=== PATIENT | female | born 2005 | race Caucasian/White ===

== ENCOUNTER 2024-06-05 15:14 | Emergency (ER) | payer SELFPAY ==
--- NOTE | ~2024-06-05 | XR_ITS ---
EXAMINATION: XR chest 2V Exam Date/Time: 06/05/2024 17:41 CDT HISTORY: shortness of breath FOR 1 DAY, HX OF ASTHMA Comparison: None. RESULT: Lines, tubes, and devices: None. Lungs and pleura: Clear. Cardiomediastinal silhouette: Normal. Other: No acute osseous or upper abdominal finding. IMPRESSION: No acute cardiopulmonary process. Reviewed, dictated and finalized at location K.
[2024-06-05 15:31] VITALS: BP 147/69; PULSE 96; RESP 16; TEMP 37.4; O2SAT 100
--- NOTE | 2024-06-05 17:21 | ED.GENADULT ---
HPI - General Adult General Chief complaint: Unspecified <Agnes Reyes APRN - Last Filed: 06/05/24 17:23> Stated complaint: Sent from [facility] allergic reaction <Agnes Reyes APRN - Last Filed: 06/05/24 17:23> Time Seen by Provider: 06/05/24 17:10 <Agnes Reyes APRN - Last Filed: 06/05/24 17:23> Focused HPI: Patient is a 19-year-old female who presents to the ER with complaints of sore and swollen throat. She reports she took a Zepbound injection on Wednesday and started to feel a little funky the next day. Patient reports her symptoms worsened yesterday. She called her physician who advised her to come to the ER in case she was having allergic reaction to Zepbound. Patient endorses a history of high blood pressure although she has never been diagnosed with it. She denies any recent contacts, recent fevers, or abdominal pain. Patient does endorse increased fatigue recently. GENERAL: Well-appearing, well-nourished, and in no acute distress. HEAD: Normocephalic, atraumatic. CHEST: Clear to auscultation. ?No respiratory distress. HEART: Regular rate and rhythm.? NEURO: ?Alert and oriented x3. Patient screened in triage and initial orders placed.? ?Additional care and disposition to be based upon?diagnostic testing and treatment. <Agnes Reyes APRN - Last Filed: 06/05/24 17:23> Related Data Allergies/adverse reactions: Allergies Allergy/AdvReac Type Severity Reaction Status Date / Time No Known Allergies Allergy Verified 06/05/24 15:15 <Agnes Reyes APRN - Last Filed: 06/05/24 17:23> Course Vital Signs Vital signs: Vital Signs Temperature 99.4 F 06/05/24 15:31 Pulse Rate 96 06/05/24 15:31 Respiratory Rate 16 06/05/24 15:31 Blood Pressure 147/69 H 06/05/24 15:31 Pulse Oximetry 100 06/05/24 15:31 Oxygen Delivery Room Air 06/05/24 15:31 Temperature 99.4 F 06/05/24 15:31 Pulse Rate 87 06/05/24 19:51 Respiratory Rate 15 06/05/24 19:51 Blood Pressure 138/86 06/05/24 19:51 Pulse Oximetry 98 06/05/24 19:51 Oxygen Delivery Room Air 06/05/24 18:40 <Agnes Reyes APRN - Last Filed: 06/05/24 17:23> Vital Signs Temperature 99.4 F 06/05/24 15:31 Pulse Rate 96 06/05/24 15:31 Respiratory Rate 16 06/05/24 15:31 Blood Pressure 147/69 H 06/05/24 15:31 Pulse Oximetry 100 06/05/24 15:31 Oxygen Delivery Room Air 06/05/24 15:31 Temperature 99.4 F 06/05/24 15:31 Pulse Rate 87 06/05/24 19:51 Respiratory Rate 15 06/05/24 19:51 Blood Pressure 138/86 06/05/24 19:51 Pulse Oximetry 98 06/05/24 19:51 Oxygen Delivery Room Air 06/05/24 18:40 <Steve Funk PA-C - Last Filed: 06/06/24 01:42> Medical Decision Making MDM Narrative Medical decision making narrative: This is a 19-year-old female who presents to the ED for chief complaint of congestion, sore throat. Vitals are normal. Exam unremarkable. Patient is concerned for possible allergic reaction. Seems to be either allergic reaction or viral URI. Viral screen is negative. Bremer test negative and strep test negative. Chest x-ray is also negative. Patient was given Toradol IM as well as prednisone p.o. as ordered by BENY in triage. She is well-appearing on my evaluation. Presentation consistent with allergies versus viral URI. Low concern for severe allergic reaction. Patient will be discharged in stable condition. Supportive measures discussed and return precautions given. Patient is understanding and agreeable with plan for discharge with PCP follow-up. <Steve Funk PA-C - Last Filed: 06/06/24 01:42> Vital Signs Vital Signs: Vital Signs Temperature 99.4 F 06/05/24 15:31 Pulse Rate 96 06/05/24 15:31 Respiratory Rate 16 06/05/24 15:31 Blood Pressure 147/69 H 06/05/24 15:31 Pulse Oximetry 100 06/05/24 15:31 Oxygen Delivery Room Air 06/05/24 15:31 Temperature 99.4 F 06/05/24 15:31 Pulse Rate 87 06/05/24 19:51 Respiratory Rate 15 06/05/24 19:51 Blood Pressure 138/86 06/05/24 19:51 Pulse Oximetry 98 06/05/24 19:51 Oxygen Delivery Room Air 06/05/24 18:40 <Agnes Reyes APRN - Last Filed: 06/05/24 17:23> Vital Signs Temperature 99.4 F 06/05/24 15:31 Pulse Rate 96 06/05/24 15:31 Respiratory Rate 16 06/05/24 15:31 Blood Pressure 147/69 H 06/05/24 15:31 Pulse Oximetry 100 06/05/24 15:31 Oxygen Delivery Room Air 06/05/24 15:31 Temperature 99.4 F 06/05/24 15:31 Pulse Rate 87 06/05/24 19:51 Respiratory Rate 15 06/05/24 19:51 Blood Pressure 138/86 06/05/24 19:51 Pulse Oximetry 98 06/05/24 19:51 Oxygen Delivery Room Air 06/05/24 18:40 <Steve Funk PA-C - Last Filed: 06/06/24 01:42> Lab Data Result diagrams: 06/05/24 18:35 06/05/24 18:35 <Agnes Reyes APRN - Last Filed: 06/05/24 17:23> Labs: Lab Results 06/05/24 06/05/24 Range/Units 18:35 18:58 WBC 5.8 (4.5-10.0) K/mm3 RBC 5.17 (4.2-5.4) M/mm3 Hgb 14.7 (12.0-15.0) g/dL Hct 44.4 (37.0-47.0) % MCV 85.9 (80-100) fl MCH 28.4 (26-34) pg MCHC 33.1 (32-36) g/dl RDW 12.5 (11.5-14.5) % Plt Count 229 (150-375) k/mm3 MPV 9.2 (7.4-10.4) fl Immature Gran % (Auto) 0.3 (0-0.5) % Neut % (Auto) 90.0 H (45.5-73.1) % Lymph % (Auto) 8.1 L (18.3-44.2) % Bremer % (Auto) 1.4 L (2.6-8.5) % Eos % (Auto) 0.0 (0-4.4) % Baso % (Auto) 0.2 (0.2-1.2) % Lymph # (Auto) 0.47 L (0.9-3.2) K/mm3 Bremer # (Auto) 0.1 (0.1-0.6) K/mm3 Eos # (Auto) 0.0 (0-0.3) K/mm3 Baso # (Auto) 0.0 (0.0-0.1) K/mm3 Abs Immat Gran (auto) 0.02 (0.00-0.031) K/mm3 Absolute Neuts (auto) 5.2 (1.3-6.7) K/mm3 Absolute Nucleated RBC 0.000 (0.0-0.012) K/mm3 Nucleated RBC % 0.0 (0.0-0.2) % Sodium 138 (137-145) mmol/L Potassium 3.9 (3.4-5.0) mmol/L Chloride 105 (98-107) mmol/L Carbon Dioxide 23 (22-30) mmol/L Anion Gap 10 (4-12) mmol/L BUN 8 (7-17) mg/dL Creatinine 0.60 L (0.7-1.0) mg/dL Estim Creat Clear Calc 136 ml/min Estimated GFR > 60 (59 - ) Glucose 135 H (65-110) mg/dL Calcium 9.2 (8.4-10.2) mg/dL Total Bilirubin 0.9 (0.2-1.3) mg/dL AST 37 H (14-36) U/L ALT 51 H (6-35) U/L Alkaline Phosphatase 95 (38-126) U/L Total Protein 8.0 (6.3-8.2) g/dL Albumin 4.8 (3.5-5.1) g/dL Monoscreen Negative (Negative) Influenza A (RT-PCR) Negative (Negative) Influenza B (RT-PCR) Negative (Negative) RSV (RT-PCR) Negative (Negative) SARS-CoV-2 RNA (RT-PCR) Negative (Negative) Group A Strep (PCR) Not detected (Negative) <Agnes Gilbert Reyes, MATERIAL DAMAGE ADJUSTER - Last Filed: 06/05/24 17:23> Lab Results 06/05/24 06/05/24 Range/Units 18:35 18:58 WBC 5.8 (4.5-10.0) K/mm3 RBC 5.17 (4.2-5.4) M/mm3 Hgb 14.7 (12.0-15.0) g/dL Hct 44.4 (37.0-47.0) % MCV 85.9 (80-100) fl MCH 28.4 (26-34) pg MCHC 33.1 (32-36) g/dl RDW 12.5 (11.5-14.5) % Plt Count 229 (150-375) k/mm3 MPV 9.2 (7.4-10.4) fl Immature Gran % (Auto) 0.3 (0-0.5) % Neut % (Auto) 90.0 H (45.5-73.1) % Lymph % (Auto) 8.1 L (18.3-44.2) % Bremer % (Auto) 1.4 L (2.6-8.5) % Eos % (Auto) 0.0 (0-4.4) % Baso % (Auto) 0.2 (0.2-1.2) % Lymph # (Auto) 0.47 L (0.9-3.2) K/mm3 Bremer # (Auto) 0.1 (0.1-0.6) K/mm3 Eos # (Auto) 0.0 (0-0.3) K/mm3 Baso # (Auto) 0.0 (0.0-0.1) K/mm3 Abs Immat Gran (auto) 0.02 (0.00-0.031) K/mm3 Absolute Neuts (auto) 5.2 (1.3-6.7) K/mm3 Absolute Nucleated RBC 0.000 (0.0-0.012) K/mm3 Nucleated RBC % 0.0 (0.0-0.2) % Sodium 138 (137-145) mmol/L Potassium 3.9 (3.4-5.0) mmol/L Chloride 105 (98-107) mmol/L Carbon Dioxide 23 (22-30) mmol/L Anion Gap 10 (4-12) mmol/L BUN 8 (7-17) mg/dL Creatinine 0.60 L (0.7-1.0) mg/dL Estim Creat Clear Calc 136 ml/min Estimated GFR > 60 (59 - ) Glucose 135 H (65-110) mg/dL Calcium 9.2 (8.4-10.2) mg/dL Total Bilirubin 0.9 (0.2-1.3) mg/dL AST 37 H (14-36) U/L ALT 51 H (6-35) U/L Alkaline Phosphatase 95 (38-126) U/L Total Protein 8.0 (6.3-8.2) g/dL Albumin 4.8 (3.5-5.1) g/dL Monoscreen Negative (Negative) Influenza A (RT-PCR) Negative (Negative) Influenza B (RT-PCR) Negative (Negative) RSV (RT-PCR) Negative (Negative) SARS-CoV-2 RNA (RT-PCR) Negative (Negative) Group A Strep (PCR) Not detected (Negative) <Steve Funk PA-C - Last Filed: 06/06/24 01:42> Discharge Plan Discharge Clinical Impression: Nasal congestion, Sore throat <Agnes Reyes APRN - Last Filed: 06/05/24 17:23> Patient Disposition: Home <Agnes Reyes APRN - Last Filed: 06/05/24 17:23> Condition: Stable <Agnes Reyes APRN - Last Filed: 06/05/24 17:23> Instructions: Antibiotic Form <Agnes Reyes APRN - Last Filed: 06/05/24 17:23> Additional Instructions: Exam and workup today are reassuring. Please continue to follow-up with your primary physician on this issue. Take Benadryl as needed for allergic symptoms. If you continue to have nasal congestion, use Flonase. If you have any new or worsening symptoms please return to the ER for further evaluation. <Agnes Reyes APRN - Last Filed: 06/05/24 17:23> Patient Language: Somali <Agnes Reyes APRN - Last Filed: 06/05/24 17:23> Prescriptions: New fluticasone propionate [Flonase Allergy Relief] 50 mcg/actuation spray,suspension 1 spray intranasal BID PRN (Reason: congestion) Qty: 16 0RF Rx Instructions: administer into each nostril <Agnes Reyes APRN - Last Filed: 06/05/24 17:23> Follow-up/Referrals: PHYSICIAN NOT ON STAFF,NONSTAFF [Primary Care Provider] - <Agnes Reyes APRN - Last Filed: 06/05/24 17:23> Time of Disposition: 19:59 <Agnes Reyes APRN - Last Filed: 06/05/24 17:23> 19:59 <Steve Funk PA-C - Last Filed: 06/06/24 01:42>
[2024-06-05 18:40] VITALS: O2SAT 99
[2024-06-05] MEDS: predniSONE 20 MG TABLET 40 MG PO (18:40)
[2024-06-05 18:41] LABS: Basophils Percent Auto 0.2 % (0.2-1.2); Hematocrit 44.4 % (37.0-47.0); Hemoglobin 14.7 g/dL (12.0-15.0); Immature Granulocyte Absolute 0.02 K/mm3 (0.00-0.031); Immature Granulocyte Percent A 0.3 % (0-0.5); Lymphocytes Absolute Auto 0.47 K/mm3 (0.9-3.2); Lymphocytes Percent Auto 8.1 % (18.3-44.2); Mean Corpuscular HGB Conc 33.1 g/dl (32-36); Mean Corpuscular Hemoglobin 28.4 pg (26-34); Mean Corpuscular Volume 85.9 fl (80-100); Mean Platelet Volume 9.2 fl (7.4-10.4); Monocytes Absolute Auto 0.1 K/mm3 (0.1-0.6); Monocytes Percent Auto 1.4 % (2.6-8.5); Neutrophils Absolute Auto 5.2 K/mm3 (1.3-6.7); Platelet Count Result 229 k/mm3 (150-375); Red Blood Count 5.17 M/mm3 (4.2-5.4); Red Cell Distribution Width 12.5 % (11.5-14.5); White Blood Count 5.8 K/mm3 (4.5-10.0)
[2024-06-05] MEDS: KETOROLAC (*BKC) 60 MG/2 ML VIAL IM (18:41)
[2024-06-05 18:52] LABS: Alanine Aminotransferase 51 U/L (6-35); Albumin Level 4.8 g/dL (3.5-5.1); Alkaline Phosphatase 95 U/L (38-126); Anion Gap 10 mmol/L (4-12); Aspartate Amino Transferase 37 U/L (14-36); Bilirubin,Total 0.9 mg/dL (0.2-1.3); Blood Urea Nitrogen 8 mg/dL (7-17); Calcium 9.2 mg/dL (8.4-10.2); Carbon Dioxide 23 mmol/L (22-30); Chloride 105 mmol/L (98-107); Estimated CRCL calculation 136 ml/min; Estimated Glomerular Filt Rate > 60; Glucose 135 mg/dL (65-110); Potassium 3.9 mmol/L (3.4-5.0); Sodium 138 mmol/L (137-145)
[2024-06-05 19:08] LABS: Strep Group A RT-PCR NOT DETECTED (Negative)
--- OUTSIDE RECORDS SUMMARY | 2024-06-05 19:26 | XMS_ITS | Patient Health Record ---
Author Organization [facility] ([address]) Address [address] [place] [address] Care Team Providers Care Ball Worker Name Role Phone Suzette avilez Unavailable [phone] Allergies No Known Allergies Reason For Referral No Information Medications Medication SIG (Take, Route, Frequency, Duration) Notes Start Date End Date Status Albuterol Sulfate HFA 108 (90 Base) MCG/ACT 1 puff as needed Inhalation every 4 hrs Active Famotidine 20 MG 1 tablet Orally Twic e a day for 30 days Active Cetirizine HCl 10 MG 1 tablet Orally Twi ce a day for 30 days Active FLUoxetine HCl 20 MG 1 capsule Orally On ce a day Active ARIPiprazole 5 MG 1 tablet Orally Once a day Active Xyzal Allergy 24HR 5 MG 1 tablet in the evening Orally Once a day Active hydrOXYzine HCl 25 MG as directed Intramuscular Active Social History Tobacco Use: Social History Observation Description Date Details (start date - stop date) Never Smoker NA - NA Tobacco Control (Standard) Question Answer Notes Tobacco use: Nonsmoker Problems Problem Type SNOMED Code ICD Code Onset Dates Problem Status W/U Status Risk Notes Problem Shortness of breath (629566195) Shortness of breath (R06.02) Active confirmed Problem Chronic rhinitis (71539892) Chronic rhinitis (J31.0) Active confirmed Problem Hypertrophy of nasal turbinates (75711616) Hypertrophy of nasal turbinates (J34.3) Active confirmed Problem Dermatographic urticaria (8403732) 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 Problem Urticaria (199791854) Other urticaria (L50.8) Active confirmed Vital Signs Respiratory Rate 16 /min 09/09/2023 Oximetry 99 % 10/07/2023 Blood pressure diastolic 78 mm Hg 10/07/2023 Height 65 in 10/07/2023 Blood pressure systolic 118 mm Hg 10/07/2023 Weight 157.6 lbs 10/07/2023 BMI 26.22 kg/m2 10/07/2023 Encounters Encounter Location Date [facility] [address] [facility] [address] [address] [facility] L50.3 ; Other urticaria L50.8 ; Shortness of breath R06.02 ; Hypertrophy of nasal turbinates J34.3 and Chronic rhinitis J31.0 [place] [address] [employer] [address] [address] [facility] L50.3 ; Other urticaria L50.8 ; Shortness of breath R06.02 ; Hypertrophy of nasal turbinates J34.3 and Chronic rhinitis J31.0 Assessments Encounter Date Diagnosis (ICD Code) Assessment Notes Treatment Notes Treatment Clinical Notes Section Notes 09/09/2023 Dermatographic urticaria (ICD-10 - L50.3) Dermatographia confirmed with sharp and dull pressure today. Pic attached. 09/09/2023 Other urticaria (ICD-10 - L50.8) Considerations for hives include autoimmune, viral, stress, or idiopathic. History, presentation, pictures and timeframe of symptoms >6 weeks c/w chronic idiopathic urticaria. -Trial Zyrtec 10mg BID and Famotidine 20 mg BID. Discussed SIngualir with patient - will hold off at this time due to patient's mental health history. Patient purchased Zyrtec and Pepcid. -If breakthrough continues despite this treatment, consider Xolair. -Labwork ordered for further evaluation. -Encouraged to journal and take pictures. -Education on chornic urticaria provided. Encouraged to avoid products with fragrances, dyes and preservatives. Recommended Vanicream Line - samples given. -Recommend avoiding NSAIDs, opioids and alcohol as these can exacerbate symptoms. -Follow-up in 1 month for E&M 10/07/2023 Dermatographic urticaria (ICD-10 - L50.3) Dermatographia confirmed with sharp and dull pressure at initial visit. Pic attached. 10/07/2023 Other urticaria (ICD-10 - L50.8) Considerations for hives include autoimmune, viral, stress, or idiopathic. History, presentation, pictures and timeframe of symptoms >6 weeks c/w chronic idiopathic urticaria. Zyrtec 10mg and Pepcid 40mg BID was started after last visit with great improvement. Megan reports 1-2 breakthrough symptoms which she attributes to stress at work. Overall, very pleased with control. -Continue Zyrtec 10mg BID and Famotidine 20 mg BID. Discussed increasing Pepcid to 40mg BID, but patient is not interested at this time. Previosuly discussed SIngualir with patient - will hold off at this time due to patient's mental health history. -If breakthrough continues despite this treatment, consider Xolair. -Labwork ordered for further evaluation - has yet to obtain. -Encouraged to journal and take pictures. -Education on chornic urticaria provided. Encouraged to avoid products with fragrances, dyes and preservatives. Recommended Vanicream Line. -Recommend avoiding NSAIDs, opioids and alcohol as these can exacerbate symptoms. -Follow-up in 3 months for E&M 10/07/2023 Shortness of breath (ICD-10 - R06.02) Megan reports a childhood diagnosis of asthma. Currently uses albuterol as needed, prophylactically before cardio exercises. She has not used as a rescue inhaler in years. Previously, she would use as SHERIE as rescue inhaler when arond smoke. She reports a history of PNA around age of 5, not confirmed with Chest Xray. She was treated with nebulizers at that time. Denies all lower airway symptoms today. - Only using SHERIE prophylactically at this time. Continue SHERIE e2 puffs every 4-6 hours as needed. - Spirometry previously recommended, but patient declined. - Instructed to notify office of increase SHERIE use. 09/09/2023 Shortness of breath (ICD-10 - R06.02) Megan reports a childhood diagnosis of asthma. Currently uses albuterol as needed, prophylactically before cardio exercises. She has not used as a rescue inhaler in years. Previously, she would use as SHERIE as rescue inhaler when arond smoke. She reports a history of PNA around age of 5, not confirmed with Chest Xray. She was treated with nebulizers at that time. Deneis all lower airway symptoms today. - Only using SHERIE prophylactically at this time. Continue SHERIE e2 puffs every 4-6 hours as needed. - Spirometry recommended today, but patient declined. - Instructed to notify office of increase SHERIE use. 09/09/2023 Hypertrophy of nasal turbinates (ICD-10 - J34.3) Megan reports nasal congestion, rhinorrhea, itchy/watery eyes. Symptoms worse in Spring. Previously used Zyrtec PRN, but saw minimal improvement. She has never undergone allergy skin testing or received allergy immunotherapy. 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 Consider skin testing when hives are stable. ImmunoCaps ordered for evaluation of atopic disease. 10/07/2023 Hypertrophy of nasal turbinates (ICD-10 - J34.3) Megan reports nasal congestion, rhinorrhea, itchy/watery eyes. Symptoms worse in Spring. Previously used Zyrtec PRN, but saw minimal improvement. She has never undergone allergy skin testing or received allergy immunotherapy. 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 Consider skin testing when hives are stable. ImmunoCaps ordered for evaluation of atopic disease, has yet to obtain. 09/09/2023 Chronic rhinitis (ICD-10 - J31.0) As stated above. 10/07/2023 Chronic rhinitis (ICD-10 - J31.0) As stated above. 09/09/2023 Other 10/07/2023 Other Plan Of Treatment Pending Test Test Name Order Date RESPIRATORY ALLERGY PROFILE REGION VIII: [place], [place] 09/09/2023 CHRONIC URTICARIA 09/09/2023 ANTI-IGE 09/09/2023 TRYPTASE 09/09/2023 CU PANEL 09/09/2023 Insurance Providers Payer Name Payer Address Payer Phone Subscriber Number Group Number Insured Name Patient Relationship to Insured Coverage Start Date Coverage End Date [facility] [address] [place] [address] [id number] Megan Torres Self - patient is the insured 4 Medical (General) History Medical History History ICD Code Urticaria, unspecified L50.9
--- OUTSIDE RECORDS SUMMARY | 2024-06-05 19:26 | XMS_ITS | Clinical Summary ---
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 Gender Identity Not on file Sexual Orientation Not on file Plan of Treatment Health Maintenance Due Date Last Done Comments Hepatitis C Virus (HCV) Screening 2003 Meningococcal B Immunization (2 of 2 - Bexsero SCDM 2-dose series) 08/18/2019 02/17/2019 Influenza Immunization (#1) 2023 11/18/2004, 1 2003 SARS-COV-2 Immunization ( season) 2023 Respiratory Syncytial Virus (RSV) Immunization (Adult) (1 - 1-dose 75+ series) 2078 Hepatitis B Immunization Completed 005, 2003, 2003 Pneumococcal Immunization Combined Aged Out 11/18/2004, 06/19/2004, 2003, Additional history exists No longer eligible based on patient's age to complete this topic Measles Mumps Rubella (MMR) Immunization Discontinued 10/04/2008, 11/18/2004 Polio (IPV) Immunization Discontinued 009, 12/20/2004, 06/19/2004, Additional history exists Varicella Immunization Discontinued 10/04/2008, 2004 DTaP/Tdap/Td Immunization Discontinued 2014, 10/04/2008, 12/20/2004, Additional history exists Hepatitis A Immunization Discontinued 09/25/2014, 06/2013 TdaP Immunization Completed 09/25/2014 Human Papillomavirus (HPV) Immunization Completed 02/18/2018, 09/25/2014 Meningococcal Immunization (ACWY) Completed 02/17/2019, 09/25/2014 Rotavirus Immunization Aged Out No lo nger eligible based on patient's age to complete this topic
--- OUTSIDE RECORDS SUMMARY | 2024-06-05 19:26 | XMS_ITS ---
Author Organization [facility] ([address]) Address [address] [place] [address] Care Team Providers Care Medical Interpreter Name Role Phone Suzette Heredia Unavailable [phone] REASON FOR VISIT ARC follow-up Encounters Encounter Location Date Provider Diagnosis [facility] [address] [place] [address] 02/02/2024 Suzette Heredia Plan Of Treatment No Information Progress Notes * Julianne PALACIOOB:2005 (19 yo F)Acc No.[id number]:02/02/2024 Progress Notes Patient: Megan VALDIVIA Provider: AMAIRANI Ruby :2005 A ge:18 Y S ex:Female Date:02/02/2024 Address:[facility] [address], [place], [place] Subjective: * Chief Complaints: * 1 . ARC follow-up. * Medical History: Objective: * Vitals: Assessment: Plan: * Treatment: * Billing Information: * Visit Code: * Procedure Codes: * Electronic signature of AMAIRANI Chiang on 06/05/2024 at 07:26 PM CDT Sign off status: Pending * Provider: Ethel Heredia C DEVELOPER-BC Date: 1 04/04/2023 Generated for Lakshmi cerna/Jamal/Marcia on: 0 06/05/2024 07:26 PM CDT
--- OUTSIDE RECORDS SUMMARY | 2024-06-05 19:26 | XMS_ITS ---
Author Organization [facility] ([address]) Address [address] [place] [address] Care Team Providers Care Juvenile Justice Specialist Name Role Phone Suzette Heredia Unavailable [phone] Allergies No Known Allergies REASON FOR VISIT Ongoing hives since 01/2022. Improved since starting Zyrtec and Pepcid BID., Chronic upper airway symptoms concerning for uncontrolled atopic disease, Historical childhood asthma diagnosis - uses albuterol prophylactically before cardio exercises. Medications Medication SIG (Take, Route, Frequency, Duration) Notes Start Date End Date Status Albuterol Sulfate HFA 108 (90 Base) MCG/ACT 1 puff as needed Inhalation every 4 hrs Active Famotidine 20 MG 1 tablet Orally Twic e a day for 30 days Active ARIPiprazole 5 MG 1 tablet Orally Once a day Active Xyzal Allergy 24HR 5 MG 1 tablet in the evening Orally Once a day Active hydrOXYzine HCl 25 MG as directed Intramuscular Active Cetirizine HCl 10 MG 1 tablet Orally Twi ce a day for 30 days Active FLUoxetine HCl 20 MG 1 capsule Orally On ce a day Active Social History Tobacco Use: Social History Observation Description Date Details (start date - stop date) Never Smoker NA - NA Tobacco Control (Standard) Question Answer Notes Tobacco use: Nonsmoker Vital Signs Blood pressure systolic 118 mm Hg 10/07/19 24 Blood pressure diastolic 78 mm Hg 024 Height 65 in 10/07/2023 Weight 157.6 lbs 10/07/2023 BMI 26.22 kg/m2 10/07/2023 Oximetry 99 % 10/07/2023 Encounters Encounter Location Date Provider Diagnosis [facility] [address] [place] [address] 10/07/2023 Suzette sandra 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 10/07/2023 Hypertrophy of nasal turbinates (ICD-10 - [...] of atopic disease, has yet to obtain. 10/07/2023 Chronic rhinitis (ICD-10 - J31.0) As stated above. 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 Pic attached. Other urticaria Considerations for hives include autoimmune, viral, stress, [...] symptoms. -Follow-up in 3 months for E&M Shortness of breath Megan reports a childhood diagnosis of asthma. [...] to notify office of increase SHERIE use. Hypertrophy of nasal turbinates Megan reports nasal congestion, rhinorrhea, itchy/watery eyes. Symptoms worse in Spring. Previously used Zyrtec PRN, but saw minimal improvement. She has never undergone allergy skin testing or received allergy immunotherapy. 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 Consider skin testing when hives are stable. ImmunoCaps ordered for evaluation of atopic disease, has yet to obtain. Chronic rhinitis As stated above. Next Appt Details Follow Up: 3 Months, Reason: Evaluation and Management, Laboratory Review Progress Notes * Julianne PALACIOOB:2005 (18 yo F)Acc No.[id number]:10/07/2023 Progress Notes Patient: Megan VALDIVIA Provider: AMAIRANI Ruby :2005 A ge:18 Y S ex:Female Date:10/07/2023 Address:[address] [place] [address], [id number] Subjective: * Chief Complaints: * O ngoing hives since 01/2022. Improved since starting Zyrtec and Pepcid BID.Chronic upper airway symptoms concerning for uncontrolled atopic diseaseHistorical childhood asthma diagnosis - uses albuterol prophylactically before cardio exercises. * HPI: * Introduction: I had the pleasure of seeing Charles Palacio, a 18 year-old WF with a history of CIU, bipolar disorder and anxiety here today for interval hives evaluation and management. She is alone for today's visit. Megan reports ongoing hives since 01/2022. At that time, she started working at [employer], originally thought to be from chemicals she was working. But symptoms were happening at home as well. Megan reports she will brush against something and skin will flare and become itchy. She will have wheals develop all over body. Symptoms are exacerbated by heat and e xercise. S ymptoms will resolve in 24 hours, often within 30 minutes to 1 hour. She complains of extreme itchiness when symptoms are present. She has attempted hydroxyzine with no improvement. She also uses Benadryl cream to help with itching. Xyzal was recommended, but has yet to try. She denies associated swellnig episodes. At one time, Megan was told it could be related to anziety, started medication and symptoms still occuring. She was evaluated by [facility], reports hives at that time. Xyzal was recommended, but never started.Current products consist of Tide detergent, no dryer sheets, TreSemme shampoo and conditioner, unscented dove for soap, Jergens moisturizer. Does not use makeup products. NSAIDs use sparingly. Denies alcohol, opioid use. She uses Tylenol PRN. Zyrtec 10mg BID and Pepcid 20mg BID was started after last visit with great improvement in symptoms. Megan reports 1-2 breakthrough hives, which she attributes to stress at work at that time. Overall, she is very pleased with progress at this time. Megan reports a childhood diagnosis of asthma. Currently uses albuterol as needed, prophylactically before cardio exercises. She has not used as a rescue inhaler in years. Previously, she would use as SHERIE as rescue inhaler when arond smoke. She reports a history of PNA around age of 5, not confirmed with Chest Xray. She was treated with nebulizers at that time. She admits to nasal congestion, rhinorrhea, itchy/watery eyes.Descriptors of her upper airways symptoms are outlined below. Symptoms worse in Spring. Previously used Zyrtec PRN, but saw minimal improvement. She has never undergone allergy skin testing or received allergy immunotherapy. She denies frequent infections, OCS use for lower airways. She denies a history of physician-diagnosed allergic rhinitis, recurrent sinusitis or otitis media, recurrent pneumonia, asthma/RAD, eczema, food allergies, medication allergies, contact dermatitis, latex allergy, eosinophilic esophagitis or stinging insect hypersensitivity. Today, she reports no fevers, chills, night sweats or other constitutional symptoms. * ROS: A LLERGY: Positive p er the HPI and history, otherwise unremarkable.?runny nose Y es. s cratchy throat N o. e ar fullness N o. s inus congestion N o. S PECIAL SENSES: Positve for n one. c ataracts N o. g laucoma?No. l oss of hearing N o. i tching in ears N o. r inging in ears N o.?loss of balance N o. l oss of smell N o. d ry eyes N o. e xcessive tearing No. i tching eyes N o. l oss of taste N o. c onjunctivitis N o. e ar infections N o. C ONSTITUTIONAL: weight gain N o. l oss of appetite N o. f ever?No. w eakness N o. w eight loss N o. f atigue N o. n ight sweats?Yes. P ositive for n one. E NT: cold N o. c ough N o. e pistaxis N o. h earing loss N o. c hange in voice N o. s ore throat N o. r inging in ears?No. s inus pain N o. P ositive p er the HPI and history, otherwise unremarkable.? R ESPIRATORY: shortness of breath N o. c hest pain N o. c hest congestion N o. c ough N o. P ositive p er the HPI and history, otherwise unremakable. O PHTHALMOLOGY: diminished vision N o. e ye irritation N o. d rainage from eyes N o. b lurring of vision N o. s easonal eye sx N o. P ositive for p er the HPI and history, otherwise unremarkable. i tching N o. s ensitivity to light N o. d ischarge N o. w atering N o. s welling of the eyelids N o. r edness N o. E NDOCRINOLOGY: fatigue N o. p olydipsia N o. p olyuria N o. w eight loss N o. s leep disturbance N o. c old intolerance N o. h eat intolerance N o. d iabetes N o. P ositive for n one. C ARDIOLOGY: chest pain Y es. p alpitations N o. l eg edema?No. d izziness N o. s hortness of breath Y es. P ositive for n one.? G ASTROENTEROLOGY: dysphagia N o. a bdominal pain N o. n ausea?No. v omiting N o. c onstipation N o. d iarrhea N o. b lood in stool?No. i ndigestion N o. h emorrhoids N o. P ositive for n one. ? U ROLOGY: difficulty urinating N o. b lood in urine N o. f requent urination N o. u rinary incontinence N o. r ecurrent UTI N o. P ositive for n one. D ERMATOLOGY: rash Y es. m ole Y es. l umps N o. d ry or sensitive skin Y es. h ania (urticaria) Y es. a cne Y es. s kin cancer?No. P ositive for p er the HPI and history, otherwise unremakable. N EUROLOGY: headache N o. t ingling numbness N o. s eizures?No. i nsomnia N o. m sergio loss N o. d izziness N o. g ait abnormality N o. P ositive for n one. H EMATOLOGY/LYMPH: Positive for n one. M USCULOSKELETAL: joint swelling N o. j oint pain N o. l eg cramps N o. j oint stiffness N o. s ciatica N o. o steoporosis N o. f racture N o. c arpal tunnel N o. g out N o. P ositive for n one. P SYCHOLOGY: high stress level Y es. d epression Y es. s leep disturbances Y es,No. s uicidal ideation N o. e ating disorder N o. m ental or physical abuse N o. a nxiety Y es. P ositive for n one. M MARGE REPRODUCTIVE: difficulty with erection N o. d iminished sexual drive?No. p enile discharge N o. i nfertility N o. F EMALE REPRODUCTIVE: heavy periods N o. h ot flashes N o. a bnormal vaginal discharge N o. s exually active Y es. i nfertility N o. f requent yeat infections N o. p elvic pain N o. b reast pain N o. n ipple discharge No. A re you ? N o. A re you planning on a future pregancy? N o. ? A ll other review of systems per the HPI and history, otherwise unremarkable. * Medical History: * Surgical History: N o Surgical History documented. * Hospitalization/Major Diagno stic Procedure: N o Hospitalization History. * Family History: F ather: , No. M other: alive, Yes. P aternal Grand Father: Yes. P aternal Grand Mother: Yes. M aternal Grand Father: Yes. M aternal Grand Mother: Yes. S iblings: Yes. C hildren: No. 3 brother(s) - healthy. . father- allergy to penicillin mother- allergy to sulfa, food allergies brother- allergy to pet dander. * Social History: M arital Status What is your marital status? s edu A lcohol Screening Do you ever drink alcoholic beverages? N o S moking Have you ever smoked tobacco: n ever smoked Additional Findings: Tobacco Non-User N ever used moist powdered tobacco Are you a : n ever smoker R ecreational drug use Have you ever used recreational drugs? N o D etails on consumption of certain products? Do you regularly consume products with aspartame; Equal or NutraSweet? N o Do you regularly consume products with artificial coloring??No Have you ever noticed worsening of your rash with these food items? N o E xercise What kind(s) of exercise do you perform regularly? w eight training How often do you perform this exercise? w eekly A re any of the following personal care products containing fragrance, dye or preservatives used regularly? Shampoo: Y es Conditioner: Y es Soap: N o Laundry Detergent: Y es Fabric Softener: N o Deodorant: Y es Perfume, cologne, after shave: Y es Air freshners or other scented products: Y es Hair coloring dyes or rinses: N o Other: N o O ccupation Are you currenly employed? Y es Employment status? 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 number of years?2 Do you believe that your current or previous occupation has any bearing on your illness? N o Please describe the effect of your illness on your job d ecreased enjoyment Do you have any pending or planned legal action against your current or former employer which pertains to your medical illness? N o Do you anticipate that your evaluation will be used in any legal action against your current employer or former employer? N o Have you had any job with high exposure to fumes, chemicals, dust or other noxious substances? N o Are you currently a student? N o E nvironmental History Living environment: a partment Where is the home located? s [place] Age of home: 1 0 How long have you lived there? 0 -1 years How many people live in the home? 3 H ome description Basement: N o Any water damage in basement? N o Smokers in the home? N o Smokers outside the home? N o Air Conditioning? Y es Central Air? Y es Forced air heating? Y es Gas or electric? e lectric Fireplace? N o Wood burning stove? N o Do you vacuum the home? Y es Air purification systems? Y es Is it a HEPA (high-efficiency particulate air filter)? Y es Ionizer on air purification system? N o Pillow and mattress dust-proof encasings? Y es Do you use a humidifier? Y es Whole house or room? w hole house humidifier Does it have a humidistat? N o Is it used year-round, seasonal, or as needed? a s needed Is the humidifier cleaned regularly? Y es Do you own any pets? N o Fabric softeners used? N o Plants in the home? Y es How many? 2 Where are they kept? k itchen Is there carpeting in your bedroom? N o Do you have [id number] carpeting? N o What is the age of your mattress (years)? 4 What material(s) are used to manufacture your bedding and pillow? s ynthetic,natural fiber (e.g. cotton) What is the age of your pillow (years)? 2 What material are your bedding items made of? s ynthetic Do you sleep with quilts or blankets or a duvet? N o T obacco Control (Standard) Tobacco use: N onsmoker * Medications: T akingXyzal Allergy 24HR 5 MG Tablet 1 tablet in the evening Orally Once a day hydrOXYzine HCl 25 MG Tablet as directed Intramuscular FLUoxetine HCl 20 MG Capsule 1 capsule Orally Once a day ARIPiprazole 5 MG Tablet 1 tablet Orally Once a day Cetirizine HCl 10 MG Tablet 1 tablet Orally Twice a day Famotidine 20 MG Tablet 1 tablet Orally Twice a day Albuterol Sulfate HFA 108 (90 Base) MCG/ACT Aerosol Solution 1 puff as needed Inhalation every 4 hrs Medication List reviewed and reconciled with the patientTaking Xyzal Allergy 24HR 5 MG Tablet 1 tablet in the evening Orally Once a day Taking hydrOXYzine HCl 25 MG Tablet as directed Intramuscular Taking FLUoxetine HCl 20 MG Capsule 1 capsule Orally Once a day Taking ARIPiprazole 5 MG Tablet 1 tablet Orally Once a day Taking Cetirizine HCl 10 MG Tablet 1 tablet Orally Twice a day Taking Famotidine 20 MG Tablet 1 tablet Orally Twice a day Taking Albuterol Sulfate HFA 108 (90 Base) MCG/ACT Aerosol Solution 1 puff as needed Inhalation every 4 hrs Medication List reviewed and reconciled with the patient * Allergies: N .K.D.A.no[Allergies Verified] Objective: * Vitals: B P:118/78mm Hg, HR:87/min, Pulse Oximetry:99%, CU-Q2oL: 29, UAS7: 12, Ht: 65 in, Wt: 157.6 lbs, BMI:26.22Index. * Examination: G eneral examination: General appearance: p leasant, well-developed, well-nourished. HEENT: p upils equal, round, and reactive to light and accommodation, conjunctiva are injected bilaterally, no tenderness to palpation of the sinuses, TM's without evidence of acute infection, turbinates 2+ swollen and pale inferiorly bilaterally, clear rhinorrhea is present, no polyps noted, no septal perforation, posterior oropharynx is erythematous and cobblestoning is present, erythema on pharyngeal wall, no exudates, no tongue swelling, and uvula is midline. Oral cavity: n ormal, no lesions. Neck, thyroid : s upple, non-tender, no anterior cervical lymphadenopathy. Breasts : n ot performed. Heart: R RR, S1-S2, no murmurs, no rubs, no gallops. Lungs: c lear to auscultation in all lung pompa, no wheezes. Neurologic exam: u nremarkable. Skin: n ormal, no rash, dermatographism, urticaria, angioedema. Peripheral pulses: n ormal (2+) bilaterally. Back: n ormal. Extremities: n ormal ROM, no clubbing, no cyanosis, no edema. Genitalia: n ot performed. Assessment: * Assessment: 1. O ther urticaria - L50.8 (Primary) 2 . D ermatographic urticaria - L50.3? 3. S hortness of breath - R06.02 4 . H ypertrophy of nasal turbinates - J34.3 5 . C hronic rhinitis - J31.0 Plan: * Treatment: 2. D ermatographic urticaria Notes: Dermatographia confirmed with sharp and dull pressure at initial visit. Pic attached. ? 3. S hortness of breath Continue Albuterol Sulfate HFA Aerosol Solution, 108 (90 Base) MCG/ACT, 1 puff as needed, Inhalation, every 4 hrs. Notes: Megan reports a childhood diagnosis of asthma. [...] to notify office of increase SHERIE use. 4. H ypertrophy of nasal turbinates Notes: Megan reports nasal congestion, rhinorrhea, itchy/watery eyes. Symptoms worse in Spring. Previously used Zyrtec PRN, but saw minimal improvement. She has never undergone allergy skin testing or received allergy immunotherapy. 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 Consider skin testing when hives are stable. ImmunoCaps ordered for evaluation of atopic disease, has yet to obtain. ? 5. C hronic rhinitis Notes: As stated above. * Procedure Codes: 9 6160 PT-FOCUSED HLTH RISK [id number] DOC MEDS VERIFIED W/PT OR RE * Preventive Medicine: Counseling: D iet a s tolerated. E xercise C ontinue activity as usual, Consider SHERIE use PRN, prior to exercise as per the asthma action plan. M edication instruction: W atch for side effects of prescribed medications,. E ducation: G ENERAL EDUCATION: Our staff spent an additional 30 minutes in direct contact with the patient educating them on their current diagnoses and proper treatment and prevention of symptoms and the proper use of medications, HIVES EDUCATION:, Avoid opioid-containing analgesics, Avoid excessive alcohol use, Avoid NSAIDs (non-steroidal anti-inflammatories) - list provided, SKIN CARE EDUCATION:, Avoid fragrances, dyes, preservatives in personal care products, MEDICATION EDUCATION:, Reviewed boxed warning on prescribed medication, Singulair (montelukast: serious neuropsychiatric events have been reported in patients; monitor for neuropsychiatric symptoms. P atient education material sent to portal? Y es C are goal follow up plan BMI management provided Y es Above Normal BMI Follow-up D ietary management education, guidance, and counseling * Follow Up: 3 Months (Reason: Evaluation and Management, Laboratory Review) * Billing Information: * Visit Code: 50083 Office Visit, Est Pt., Level 3. Modifiers: 25 * Procedure Codes: 94458 PT-FOCUSED HLTH RISK ASSMT. G8427 DOC MEDS VERIFIED W/PT OR RE. * Electronically co-signed by Maico Mejia MD, FAAAAI on 11/07/2023 at 08:12 PM CDT Sign off status: Completed true * Provider: AMAIRANI Ruby Date: 0 10/07/2023 Generated for Lakshmi cerna/Jamal/eTransmitting on: 0 06/05/2024 07:25 PM CDT History and Physical Notes * HPI (History of Present Illness) Category Sub-Category Detail Notes Category Not es *Introduction I had the pleasure o f seeing Megan Palacio, a 18 year-old WF with a history of CIU, bipolar disorder and anxiety here today for interval hives evaluation and management. She is alone for today's visit. Megan reports ongoing hives since 01/2022. At that time, she started working at [employer], originally thought to be from chemicals she was working. But symptoms were happening at home as well. Megan reports she will brush against something and skin will flare and become itchy. She will have wheals develop all over body. Symptoms are exacerbated by heat and exercise. Symptoms will resolve in 24 hours, often within 30 minutes to 1 hour. She complains of extreme itchiness when symptoms are present. She has attempted hydroxyzine with no improvement. She also uses Benadryl cream to help with itching. Xyzal was recommended, but has yet to try. She denies associated swellnig episodes. At one time, Megan was told it could be related to anziety, started medication and symptoms still occuring. She was evaluated by [facility] dermatology, reports hives at that time. Xyzal was recommended, but never started. Current products consist of Tide detergent, no dryer sheets, TreSemme shampoo and conditioner, unscented dove for soap, Jergens moisturizer. Does not use makeup products. NSAIDs use sparingly. Denies alcohol, opioid use. She uses Tylenol PRN. Zyrtec 10mg BID and Pepcid 20mg BID was started after last visit with great improvement in symptoms. Megan reports 1-2 breakthrough hives, which she attributes to stress at work at that time. Overall, she is very pleased with progress at this time. Megan reports a childhood diagnosis of asthma. Currently uses albuterol as needed, prophylactically before cardio exercises. She has not used as a rescue inhaler in years. Previously, she would use as SHERIE as rescue inhaler when arond smoke. She reports a history of PNA around age of 5, not confirmed with Chest Xray. She was treated with nebulizers at that time. She admits to nasal congestion, rhinorrhea, itchy/watery eyes. Descriptors of her upper airways symptoms are outlined below. Symptoms worse in Spring. Previously used Zyrtec PRN, but saw minimal improvement. She has never undergone allergy skin testing or received allergy immunotherapy. She denies frequent infections, OCS use for lower airways. She denies a history of physician-diagnosed allergic rhinitis, recurrent sinusitis or otitis media, recurrent pneumonia, asthma/RAD, eczema, food allergies, medication allergies, contact dermatitis, latex allergy, eosinophilic esophagitis or stinging insect hypersensitivity. Today, she reports no fevers, chills, night sweats or other constitutional symptoms Examination Category Sub-Category Detail Notes Category Not es General examination HEENT: pupils equal , round, and reactive to light and accommodation, conjunctiva are injected bilaterally, no tenderness to palpation of the sinuses, TM's without evidence of acute infection, turbinates 2+ swollen and pale inferiorly bilaterally, clear rhinorrhea is present, no polyps noted, no septal perforation, posterior oropharynx is erythematous and cobblestoning is present, erythema on pharyngeal wall, no exudates, no tongue swelling, and uvula is midline Neck, thyroid : supple, non-tender, no anterior cervical lymphadenopathy Heart: RRR, S1-S2, no murmu rs, no rubs, no gallops Lungs: clear to auscultatio n in all lung pompa, no wheezes Extremities: normal ROM, no clubb ing, no cyanosis, no edema General appearance: pleasant, well-devel oped, well-nourished Skin: normal, no rash, jackson matographism, urticaria, angioedema Neurologic exam: unremarkable Oral cavity: normal, no lesions Breasts : not performed Peripheral pulses: normal (2+) bilatera lly Back: normal Genitalia: not performed
--- OUTSIDE RECORDS SUMMARY | 2024-06-05 19:26 | XMS_ITS | Clinical Summary ---
Author Organization [facility] Address [address] [place] [place] [address] Care Team Providers Care Foster Care Worker Name Role Phone Adrienne Webb PA-C Primary Care Provider [phone] Source Comments [facility],non-owned Affiliates and Associated Physician Practices is amultiple site organization consisting of ambulatory clinics and hospital sitesin [place], [place], [place] and [place]. This disclosure is being madepursuant to the Care Everywhere program and may not contain all information available regarding this patient. Last updated 17.[facility] Allergies No known active allergies Medications * Be aware that medications may not be up to date on this document. Alwaysverify current medications with the patient. multivitamin daily (THERAGRAN) tablet Take 1 Tab by mouth daily with food Active ibuprofen (MOTRIN) 200 MG tablet Take by mouth every 6 hours as needed for Pain Active Active Problems Problem Noted Date Diagnosed Date Concussion w/o coma 01/10/2019 Sever's apophysitis, left 01/02/2016 Social History Tobacco Use Types Packs/Day Years Used Date Smoking Tobacco: Never Smokeless Tobacco: Never Tobacco Cessation:Counseling Given: Not Answered Alcohol Use Standard Drinks/Week Comments No 0 (1 standard drink = 0.6 oz pur e alcohol) AUDIT-C Answer Date Recorded Q1: How often do you have a drink containing alcohol? Never 01/13/2023 Q2: How many drinks containi ng alcohol do you have on a typical day when you are drinking? Patient does not drink Q3: How often do you have si x or more drinks on one occasion? Never 01/13/2023 Comments No Sex and Gender Information Value Date Recorded Sex Assigned at Not on file Legal Sex Female 4:43 PM CORPORATE SCHEDULER Gender Identity Not on file Sexual Orientation Not on file Last Filed Vital Signs Vital Sign Reading Time Taken Comments Blood Pressure 139/81 01/13/2023 10:37 AM CORPORATE SCHEDULER Pulse 92 01/13/2023 10:56 AM CORPORATE SCHEDULER Temperature 37.1 C (98.8 F) 01/13/2023 10:05 AM CORPORATE SCHEDULER Respiratory Rate 22 01/13/2023 10:56 AM CORPORATE SCHEDULER Oxygen Saturation 100% 01/13/2023 10:56 AM CORPORATE SCHEDULER Inhaled Oxygen Concentration - - Weight 63.5 kg (140 lb) 01/13/2023 10:06 AM CORPORATE SCHEDULER Height 167.6 cm (5' 6 ) 01/13/2023 10:06 AM CORPORATE SCHEDULER Body Mass Index 22.6 01/13/2023 10:06 AM CORPORATE SCHEDULER Plan of Treatment Health Maintenance Due Date Last Done Comments PAP SMEAR 2003 HIV SCREENING 2018 HPV VACCINE (1 - 3-dose series) 2018 CHLAMYDIA/GONORRHEA SCREENING 2019 MENINGOCOCCAL (Group B) VACCINE SHARED DECISION-MAKING (1 of 2 - Standard) 2019 HEPATITIS C SCREENING 02/05/2021 DTAP/TDAP/TD VACCINES (1 - Tdap) 2022 HEPATITIS B VACCINE (1 of 3 - 19+ 3-dose series) 2022 COVID-19 VACCINE (1 - 2023-2 5 season) 2023 DEPRESSION SCREENING 02/16/2024 INFLUENZA VACCINE (Season Ended) 2024 11/18/2004, 2003 ZOSTER VACCINE (1 of 2) 2053 HIB VACCINE Aged Out No longer eligi ble based on patient's age to complete this topic MENINGOCOCCAL GROUPS A/C/Y/W VACCINE Aged Out No longer eligible b ased on patient's age to complete this topic PNEUMOCOCCAL VACCINE Aged Out No long er eligible based on patient's age to complete this topic Care Teams Foster Care Worker Relationship Specialty Start Date End Date Adrienne Webb PA-C [address] [place] [phone] PCP - General Physician Peripheral Edp Equipment Operator 01/13/23
--- OUTSIDE RECORDS SUMMARY | 2024-06-05 19:26 | XMS_ITS ---
Author Organization [facility] ([address]) Address [address] [place] [address] Care Team Providers [facility] Name Role Phone Maria Luisarafa Suzette Unavailable [phone] Allergies No Known Allergies REASON FOR VISIT Ongoing hives since 01/2022. Current treatment of Hydroxyzine with minimal improvement., Chronic upper airway symptoms concerning for uncontrolled atopic disease - used Zyrtec PRN., Historical childhood asthma diagnosis - uses albuterol prophylactically before cardio exercises. Medications Medication SIG (Take, Route, Frequency, Duration) Notes Start Date End Date Status ARIPiprazole 5 MG 1 tablet Orally Once a day Active FLUoxetine HCl 20 MG 1 capsule Orally On ce a day Active hydrOXYzine HCl 25 MG as directed Intramuscular Active Cetirizine HCl 10 MG 1 tablet Orally Twi a day for 30 days 09/09/2023 Active Albuterol Sulfate HFA 108 (90 Base) MCG/ACT 1 puff as needed Inhalation every 4 hrs Active Xyzal Allergy 24HR 5 MG 1 tablet in the evening Orally Once a day Active Famotidine 20 MG 1 tablet Orally Twic a day for 30 days 09/09/2023 Active Social History Tobacco Use: Social History Observation Description Date Details (start date - stop date) Never Smoker NA - NA Tobacco Control (Standard) Question Answer Notes Tobacco use: Nonsmoker Problems Problem Type SNOMED Code ICD Code Onset Dates Problem Status W/U Status Risk Notes Problem Chronic rhinitis (11680282) Chronic rhinitis (J31.0) Active confirmed Problem Urticaria (142806372) Other urticaria (L50.8) Active confirmed Problem 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 Problem Shortness of breath (242854851) Shortness of breath (R06.02) Active confirmed Problem Hypertrophy of nasal turbinates (41586106) Hypertrophy of nasal turbinates (J34.3) Active confirmed Vital Signs Blood pressure systolic 110 mm Hg 09/09/19 Blood pressure diastolic 76 mm Hg 024 Respiratory Rate 16 /min 09/09/2023 Height 65 in 09/09/2023 Weight 150.2 lbs 09/09/2023 BMI 24.99 kg/m2 09/09/2023 Oximetry 100 % 09/09/2023 Encounters Encounter Location Date Provider Diagnosis [facility] [address] [place] [address] 09/09/2023 Suzette Heredia Dermatographic urticaria L50.3 ; Other urticaria L50.8 [...] symptoms. -Follow-up in 1 month for E&M 09/09/2023 Shortness of breath (ICD-10 - R06.02) [...] ImmunoCaps ordered for evaluation of atopic disease. 09/09/2023 Chronic rhinitis (ICD-10 - J31.0) As stated above. 09/09/2023 Other Plan Of Treatment Medication Medication Name Sig Start Date Stop Date Notes Cetirizine HCl 10 MG 1 tablet Orally Twi ce a day for 30 days 09/09/2023 Albuterol Sulfate HFA 108 (9 0 Base) MCG/ACT 1 puff as needed Inhalation every 4 hrs Famotidine 20 MG 1 tablet Orally Twic e a day for 30 days 09/09/2023 Treatment Notes Assessment Notes Dermatographic urticaria Dermatographia confirmed with sharp and dull pressure today. Pic attached. Other urticaria Considerations for hives [...] symptoms. -Follow-up in 1 month for E&M Shortness of breath Megan reports [...] ImmunoCaps ordered for evaluation of atopic disease. Chronic rhinitis As stated above. Pending Test Test Name Order Date RESPIRATORY ALLERGY PROFILE REGION VIII: [place], [place] 09/09/2023 CHRONIC URTICARIA 09/09/2023 ANTI-IGE 09/09/2023 TRYPTASE 09/09/2023 CU PANEL 09/09/2023 Next Appt Details Follow Up: 4 Weeks, Reason: Evaluation and Management,Laboratory Review Progress Notes * George PALACIOeDOB:2005 (18 yo F)Acc No.[id number]:09/09/2023 Progress Notes Patient: Megan VALDIVIA Provider: AMAIRANI Ruby :2005 A ge:18 Y S ex:Female Date:09/09/2023 Address:[address] [place] [address] JESSIKA Perez, [facility] Subjective: * Chief Complaints: * O ngoing hives since 01/2022. Current treatment of Hydroxyzine with minimal improvement.Chronic upper airway symptoms concerning for uncontrolled atopic disease - used Zyrtec PRN.Historical childhood asthma diagnosis - uses albuterol prophylactically before cardio exercises. * HPI: * Introduction: I had the pleasure of seeing Charles Palacio, a 18 year-old WF with a history of bipolar disorder and anxiety here today for hives evaluation and management. She is alone for today's visit. Megan reports ongoing hives since 01/2022. At that time, she started working at [employer], originally thought to be from chemicals she [...] alcohol, opioid use. She uses Tylenol PRN. Megan reports a childhood diagnosis of asthma. [...] media, recurrent pneumonia, asthma/RAD, eczema, food allergies, urticaria/angioedema, medication allergies, contact dermatitis, latex allergy, eosinophilic esophagitis or stinging insect hypersensitivity. Today, she reports no fevers, chills, night sweats or other constitutional symptoms. * Allergic Rhinoconjunctivitis: Allergic rhinitis D o you have or suspect you have allergic rhinitis (itchy eyes, sneezing, congestion or runny nose triggered by allergies)? Y es W hich areas and what symptoms are involved? Please fill out each section below as needed. c ough,nose,sore throat,headache,sinuses W hich of the following trigger your allergic rhinitis symptoms? e xercise,cigarette smoke,air pollution,spring (season),fall (season) D o you have any of the following other symptoms associated with your allergic rhinitis? l oud snoring,cotton farmworker headaches Eyes O ccurence? i ntermittent H ow frequent? i nfrequent W hen does this mostly occur? a .m. S ymptoms: i tching,watering,redness E ffective treatments: o ral antihistamines (Zyrtec or Urszula or Claritin) Ears S pecific affected area: b oth (bilateral) H ow often? i ntermittent S ymptoms: a sunday Nose S pecific area affected: b oth (bilateral) O ccurence? i ntermittent H ow frequent? i nfrequent W hen does this mostly occur? a nytime E ffective treatments? o ral antihistamines (Zyrtec or Urszula or Claritin) Sinuses D o you have sinus pain? N o H ave you lost sense of taste? N o H ave you been treated with antibiotics for sinusitis? N o H ave any of the following treatments improved your sinus symptoms? n o treatment to date H ave you ever had a CT scan or xray? N o H ave you ever undergone sinus surgery? N o Sore Throat O ccurence? i ntermittent H ow frequent? i nfrequent W hen does this usually occur? a nytime E ffective treatments? o ral antihistamines (Zyrtec or Urszula) Cough F requency: i nfrequent I s cough more bothersome during night? Y es I s phlegm produced? Y es S putum color? c lear,yellow,green I s significant phlegm produced during the night? Y es Headache S pecific area(s) affected? c enter forehead (frontal),over nose between eyes (ethmoid),back area of the head,base of neck,left side of head (mandaeism),right side of head (mandaeism) O ccurence? i ntermittent H ow frequent? i nfrequent W hat time of day does this mostly occur? a nytime A ccompanying symptoms? n ausea * Asthma: Cough D o you have a recurrent cough? N o Wheezing D o you have recurrent wheezing or a history of wheezing sometime in your life? N o D id you have symptoms of asthma as a child??Yes D id you have frequent respiratory infections as a child? N o W ere you ever hospitalized in the first 12 months of life for a respiratory infection in childhood? N o D o you still have wheezing? N o I s your wheezing changing? b elkin D o you take an inhaled, rescue bronchodilator medication? N o H ave you taken oral steroids (Prednisone or Medrol) in the past? N o Physical Performance H ow many blocks can you walk? (Enter 99 for unlimited) 9 9 H ow many flights of stairs can you climb without stopping? (Enter 99 for unlimited) 2 0 I f there are limitations, what symptoms limit further activity? s hortness of breath,chest pain D o you have any of the following additional problems? e xcessive daytime sleepiness,loud snoring,difficulty concentrating during the daytime,more irritability than in the past,headaches in the morning Effective treatments for cough and or wheezing R escue inhaler or nebulizer treatment: P roAir,Albuterol * Infections: Vaccination History F or children, are childhood vaccines up to date: Y es H ave you ever had a flu shot? N o H ave you ever had a pneumococcal vaccine (YRD-Dnugsnr-Yktadwiyr)? Y es H ave you ever had a tetanus vaccine (IKek-Sxsc-Yd)? N o Ear Infections D o you have frequent ear infections? N o Sinusitis (Sinus infections) D o you have frequent episodes of sinusitis??No Sinus Symptoms and Surgery D o you have chronic or recurrent sinus symptoms? N o D o you have sinus pain? N o D o you have a loss of sense of taste? N o H ave you ever had a sinus CT or X-Ray? N o H ave your ever undergone sinus surgery? N o Bronchitis History D o you get frequent bronchitis? N o Pneumonia History H ave you ever had pneumonia or recurrent pneumonia? Y es H ow many episodes in your entire life? 3 H ow many episodes in the past 12 months? 0 H ave you been treated with antibiotics for pneumonia? Y es W ere antibiotics oral, IV or both? o ral H ave you been hospitalized for treatment??No H ave you been seen by an embosser operator or tire recapper to evaluate your immune system function for recurrent pneumonia N o Skin and Other Infections D o you get frequent skin infections (cellulitis)? N o D o you get any other frequent infections??No * Other Rash and Contact Dermatitis: Other rashes and contact dermatitis H ave you ever had any other form of rash or contact dermatitis? Y es W hen did the rash begin? 1 03/18/2021 H ow many episodes of this rash have you had in your life? 2 00 H ow many episodes of this rash have you had in the past 12 months? 1 00 H ow frequent do you have symptoms? s everal times a day H ow long do episodes (whole rash) last? m inutes H ow long does one spot (one lesion) or area of the rash last? If you were to [place] one spot with a pen, how long would that area be affected??minutes W hat time of day does the rash occur? a nytime (no predilection) I s there a time of year when your rash worsens (seasonal exacerbation)? s pring,summer,fall,winter W hat color is the rash? n o color (skin tone) B kiki parts involved? a travon,back,face,legs,neck,hands,feet,abdomen N umber of separate lesions (areas/spots)??20 T ypical size of the lesions? 5 mm,1 cm,2-3 cm (quarter-sized),4-5 cm,6-10 cm D escription of the rash? f lat,raised above the surrounding - unaffected skin S ymptoms of rash? i tching W hat triggers or provokes the rash? u nknown D o symptoms change when you are away from home? u nchanged A s the rash resolves, are there any skin changes? n o (normal skin returns) H ave you been evaluated by a prior physician for this rash? N o * Atopic dermatitis: Atopic dermatitis - Eczema D o you have chronic or recurrent atopic dermatitis or eczema? N o * Urticaria: Urticaria (hives) D o you have recurrent hives? Y es A pproximately, when did your hives start??01/15/2022 H ow many weeks of symptoms have you had in your whole life? (adding up total days of symptoms throughout your whole life) m ore than 6 weeks H ow many hives outbreaks have you had in your whole life? 2 00 H ow many outbreaks have you had in the past 12 months? 1 00 H ow frequently do you have hives outbreaks??several times a day H ow long do outbreaks last (whole rash)? h ours H ow long does one individual hive last? If you were to [place] one hive with a pen, how long would that area be affected? f ew hours W hat time(s) of day do your hives occur? a ny time (no predilection) I s there a time of year when your hives worsen (seasonal exacerbation)? s pring,summer,fall,winter D o trips away from home change the hives??unchanged C olor of your hives? r ed B kiki parts involved? a travon,back,face,legs,neck,hands,feet,palms T ypical number of separate hives? 2 0 T ypical size of hives? 5 mm,1 cm,2-3 cm (quarter-sized),4-5 cm,6-10 cm D escription of hives? f lat,raised above the surrounding unaffected skin,well-defined border,blanches (loses color) with pressure (touch),develops or worsens after I rub my skin (e.g. appears if I stroke my skin) S ymptoms of hives? i tching,burning,pain P erceived triggers or provocateurs of hives??unknown D o any of the following physical stimuli initate or worsen your hives? h eat D o you get angioedema (deep swelling) with your hives? (angioedema is painful, not itchy and commonly lasts for days) - If yes fill out the Angioedema page in this questionnaire n o - never W hat improves your hives? t opical antihistamines (e.g. Benadryl cream) A s the hives resolve, are there skin changes??no (normal skin returns) D o you use any of the following personal care products that contain fragrance, dyes or preservatives? s hampoo,conditioner,laundry detergent,deodorant D o you regularly consume products with aspartame (Equal or NutraSweet)? N o * Medication allergy: Medication Allergy D o you feel you are allergic to any medications? N o H ave you been evaluated by an embosser operator previously for possible drug allergy? N o * Stinging Insects: Insect Reaction(s) H ave you ever experienced a stinging insect reaction? Y es W hat type of stinging insect? h oney bee,sweat bee,wasp W as the reaction: s mall local - where sting occurred W hat symptoms were experienced? p ain,local swelling W ere you taken to the ER for evaluation? N o H ave you been previously prescribed an epinephrine autoinjector? N o H ave you previously seen an embosser operator for evaluation of possible stinging insect allergy? N o H ave you been treated for your stinging insect reaction with immunotherapy? N o * Prior Evaluations and Treatments: Prior evaluations and treatments H ave you been evaluated by another physician for allergic rhinitis, cough, wheezing, asthma, urticaria, angioedema, atopic dermatitis or eczema??Yes W hat type(s) of of provider(s)? P [facility] care physician H ave you undergone testing for any aforementioned conditions or symptoms? N o H ave you ever been on allergy immunotherapy??No H ave you ever passed out during a blood draw, shot or vaccination? Y es Last dose of antihistamine: h ydroxyzine (Atarax) 0 09/02/2023 H as your antihistamine been effective in controlling any of your symptoms? N o D o you take any other psychiatric medication??Yes N sapna: a ripiprazole (Abilify),trazadone (Desyrel or Deprax - also goes by many other names),Other L ast dose? 0 09/02/2023 * Food allergy: Food Allergy D o you currently have or have you ever had any proven or suspected food allergies? N o * Eosinophilic GI: Eosinophilic Gastrointestinal Disease D o you have difficulty swallowing foods or have you previously needed to have your esophagus dilated for food impaction or have you been diagnosed with eosinophilic gastrointestinal disease? N o * Angioedema: Angioedema (swelling) D o you have recurrent swelling (angioedema)??No * ROS: A LLERGY: Positive p er [...] your bedroom? N o Do you have [id number]-[id number]-zyjq carpeting? N o What is the age [...] Tobacco use: N onsmoker * Medications: T akingAlbuterol Sulfate HFA 108 (90 Base) MCG/ACT Aerosol Solution 1 puff as needed Inhalation every 4 hrs Xyzal Allergy 24HR 5 MG Tablet 1 tablet in the evening Orally Once a day hydrOXYzine HCl 25 MG Tablet as directed Intramuscular FLUoxetine HCl 20 MG Capsule 1 capsule Orally Once a day ARIPiprazole 5 MG Tablet 1 tablet Orally Once a day Medication List reviewed and reconciled with the patientTaking Albuterol Sulfate HFA 108 (90 Base) MCG/ACT Aerosol Solution 1 puff as needed Inhalation every 4 hrs Taking Xyzal Allergy 24HR 5 MG Tablet 1 tablet in the evening Orally Once a day Taking hydrOXYzine HCl 25 MG Tablet as directed Intramuscular Taking FLUoxetine HCl 20 MG Capsule 1 capsule Orally Once a day Taking ARIPiprazole 5 MG Tablet 1 tablet Orally Once a day Medication List reviewed and reconciled with the patient * Allergies: N .K.D.A.no[Allergies Verified] Objective: * Vitals: B P:110/76mm Hg, HR:69/min, RR:16/min, Pulse Oximetry:100%, CU-Q2oL: 68, UAS7: 42, Ht: 65 in, Wt: 150.2 lbs, BMI:24.99Index. * Examination: G eneral examination: General appearance: [...] sharp and dull pressure today. Pic attached. 3. S hortness of breath Continue Albuterol [...] use. 4. H ypertrophy of nasal turbinates L AB: RESPIRATORY ALLERGY PROFILE REGION VIII: [place], [place] Notes: Megan reports nasal congestion, rhinorrhea, itchy/watery eyes. Symptoms worse in Spring. Previously used Zyrtec PRN, but saw minimal improvement. She has never undergone allergy skin testing or received allergy immunotherapy. 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 Consider skin testing when hives are stable. ImmunoCaps ordered for evaluation of atopic disease. 5. C hronic rhinitis Notes: As stated above. * Procedure Codes: 9 6160 PT-FOCUSED HLTH RISK [id number] DOC MEDS VERIFIED W/PT OR RE * Preventive Medicine: Counseling: D iet a s tolerated. E xercise C ontinue activity as usual, Consider SHERIE use PRN, prior to exercise as per the asthma action plan. M edication instruction: W atch for side effects of prescribed medications, , Reviewed boxed warning on prescribed medication, Singulair (montelukast: serious neuropsychiatric events have been reported in patients; monitor for neuropsychiatric symptoms.? E ducation: G ENERAL EDUCATION: Our staff [...] education material sent to portal? Y es * Follow Up: 4 Weeks (Reason: Evaluation and Management,Laboratory Review) * Billing Information: * Visit Code: 18602 Office Visit, New Pt., Level 4. Modifiers: 25 * Procedure Codes: 49350 PT-FOCUSED HLTH RISK ASSMT. G8427 DOC MEDS VERIFIED W/PT OR RE. Images * Dermatographia * Electronically co-signed by Maico Mejia MD, FAAAAI on 09/13/2023 at 03:37 PM CDT Sign off status: Completed true * Provider: YECENIA Ruby- Date: 0 09/09/2023 Generated for Lakshmi cerna/Jamal/Marcia on: 0 06/05/2024 07:26 PM CDT History and Physical Notes * HPI (History of Present Illness) Category Sub-Category Detail Notes Category Not es *Introduction I had the pleasure of seeing Megan Palacio, a 18 year-old WF with a history of bipolar disorder and anxiety here today for hives evaluation and management. She is alone for today's visit. Megan reports ongoing hives since 01/2022. At that time, she started working at [employer], originally thought to be from chemicals she [...] symptoms still occuring. She was evaluated by [facility] dermatology, reports hives at that time. Xyzal was recommended, but never started. Current products consist of Tide detergent, no dryer sheets, TreSemme shampoo and conditioner, unscented dove for soap, Jergens moisturizer. Does not use makeup products. NSAIDs use sparingly. Denies alcohol, opioid use. She uses Tylenol PRN. Megan reports a childhood diagnosis of asthma. [...] media, recurrent pneumonia, asthma/RAD, eczema, food allergies, urticaria/angioedema, medication allergies, contact dermatitis, latex allergy, eosinophilic esophagitis or stinging insect hypersensitivity. Today, she reports no fevers, chills, night sweats or other constitutional symptoms *Allergic Rhinoconjunctivitis Eyes Occurence?: intermittent How frequent?: infrequent When does this mostly occur?: a.m. Symptoms:: itching,watering,redness Effective treatments:: oral antihistamin es (Zyrtec or Urszula or Claritin) Ears Specific affected area:: both (b ilateral) How often?: intermittent Symptoms:: ache Cough Frequency:: infrequent Is cough more bothersome during night?: Yes Is phlegm produced?: Yes Sputum color?: clear,yellow,green Is significant phlegm produced during the night?: Yes Nose Specific area affected:: both (b ilateral) Occurence?: intermittent How frequent?: infrequent When does this mostly occur?: anytime Effective treatments?: oral antihistamin es (Zyrtec or Urszula or Claritin) Sore Throat Occurence?: intermittent How frequent?: infrequent When does this usually occur?: anytime Effective treatments?: oral antihistamin es (Zyrtec or Urszula) Headache Specific area(s) aff ected?: center forehead (frontal),over nose between eyes (ethmoid),back area of the head,base of neck,left side of head (mandaeism),right side of head (mandaeism) Occurence?: intermittent How frequent?: infrequent What time of day does this mostly occur? : anytime Accompanying symptoms?: nausea Sinuses Do you have sinus pain?: No Have you lost sense of taste?: No Have you been treated with antibiotics f or sinusitis?: No Have any of the following tr eatments improved your sinus symptoms?: no treatment to date Have you ever had a CT scan or xray?: No Have you ever undergone sinus surgery?: No Allergic rhinitis Do you have or suspe ct you have allergic rhinitis (itchy eyes, sneezing, congestion or runny nose triggered by allergies)?: Yes Which areas and what symptoms are involved? Please fill out each section below as needed.: cough,nose,sore throat,headache,sinuses Which of the following trigger your allergic rhinitis symptoms?: exercise,cigarette smoke,air pollution,spring (season),fall (season) Do you have any of the following other symptoms associated with your allergic rhinitis?: loud snoring,cotton farmworker headaches *Asthma Cough Do you have a recurrent cough?: No Effective treatments for cou gh and or wheezing Rescue inhaler or nebulizer treatment:: ProAir,Albuterol Wheezing Do you have recurren t wheezing or a history of wheezing sometime in your life?: No Did you have symptoms of asthma as a chi ld?: Yes Did you have frequent respiratory infect ions as a child?: No Were you ever hospitalized i n the first 12 months of life for a respiratory infection in childhood?: No Do you still have wheezing?: No Is your wheezing changing?: better Do you take an inhaled, rescue bronchodi lator medication?: No Have you taken oral steroids (Prednisone or Medrol) in the past?: No Physical Performance How many blocks can you wal k? (Enter 99 for unlimited): 99 How many flights of stairs c an you climb without stopping? (Enter 99 for unlimited): 20 If there are limitations, wh at symptoms limit further activity?: shortness of breath,chest pain Do you have any of the follo wing additional problems?: excessive daytime sleepiness,loud snoring,difficulty concentrating during the daytime,more irritability than in the past,headaches in the morning *Infections Vaccination History For children , are childhood vaccines up to date:: Yes Have you ever had a flu shot?: No Have you ever had a pneumococcal vaccine (NEG-Zeezhnt-Jybkmknwv)?: Yes Have you ever had a tetanus vaccine (DTa p-Tdap-Td)?: No Ear Infections Do you have frequent ear infecti ons?: No Sinusitis (Sinus infections) Do you have frequen t episodes of sinusitis?: No Sinus Symptoms and Surgery Do you have chronic o r recurrent sinus symptoms?: No Do you have sinus pain?: No Do you have a loss of sense of taste?: N o Have you ever had a sinus CT or X-Ray?: No Have your ever undergone sinus surgery?: No Bronchitis History Do you get frequent bronchiti s?: No Pneumonia History Have you ever had pneumonia or recurrent pneumonia?: Yes How many episodes in your entire life?: 3 How many episodes in the past 12 months?: 0 Have you been treated with antibiotics for pneumonia? : Yes Were antibiotics oral, IV or both?: oral Have you been hospitalized for treatment?: No Have you been seen by an embosser operator or tire recapper to evaluate your immune system function for recurrent pneumonia: No Skin and Other Infections Do you get frequent sk in infections (cellulitis)?: No Do you get any other frequent infections ?: No *Other Rash and Contact Dermatitis Other rashes and contact dermatitis Have you ever had any other form of rash or contact dermatitis?: Yes When did the rash begin?: 01/15/2022 How many episodes of this rash have you had in your life?: 200 How many episodes of this rash have you had in the past 12 months?: 100 How frequent do you have symptoms?: several times a day How long do episodes (whole rash) last?: minutes How long does one spot (one lesion) or area of the rash last? If you were to [place] one spot with a pen, how long would that area be affected?: minutes What time of day does the rash occur?: anytime (no predilection) Is there a time of year when your rash worsens (seasonal exacerbation)?: spring,summer,fall,winter What color is the rash?: no color (skin tone) Body parts involved?: arms,back,face,legs,neck,hands,feet,abdomen Number of separate lesions (areas/spots)?: 20 Typical size of the lesions?: 5 mm,1 cm,2-3 cm (quarter-sized),4-5 cm,6-10 cm Description of the rash?: flat,raised above the surrounding - unaffected skin Symptoms of rash?: itching What triggers or provokes the rash?: unknown Do symptoms change when you are away from home?: unchanged As the rash resolves, are there any skin changes?: no (normal skin returns) Have you been evaluated by a prior physician for this rash?: No *Atopic dermatitis Atopic dermatitis - Eczema Do you have chronic or recurrent atopic dermatitis or eczema?: No *Urticaria Urticaria (hives) Do you have recurrent hives?: Yes Approximately, when did your hives start?: 01/15/2022 How many weeks of symptoms have you had in your whole life? (adding up total days of symptoms throughout your whole life): more than 6 weeks How many hives outbreaks have you had in your whole life?: 200 How many outbreaks have you had in the past 12 months?: 100 How frequently do you have hives outbreaks?: several times a day How long do outbreaks last (whole rash)?: hours How long does one individual hive last? If you were to [place] one hive with a pen, how long would that area be affected?: few hours What time(s) of day do your hives occur?: any time (no predilection) Is there a time of year when your hives worsen (seasonal exacerbation)?: spring,summer,fall,winter Do trips away from home change the hives?: unchanged Color of your hives?: red Body parts involved?: arms,back,face,legs,neck,hands,feet,palms Typical number of separate hives?: 20 Typical size of hives?: 5 mm,1 cm,2-3 cm (quarter-sized),4-5 cm,6-10 cm Description of hives?: flat,raised above the surrounding unaffected skin,well-defined border,blanches (loses color) with pressure (touch),develops or worsens after I rub my skin (e.g. appears if I stroke my skin) Symptoms of hives?: itching,burning,pain Perceived triggers or provocateurs of hives?: unknown Do any of the following physical stimuli initate or worsen your hives?: heat Do you get angioedema (deep swelling) with your hives? (angioedema is painful, not itchy and commonly lasts for days) - If yes fill out the Angioedema page in this questionnaire: no - never What improves your hives?: topical antihistamines (e.g. Benadryl cream) As the hives resolve, are there skin changes?: no (normal skin returns) Do you use any of the following personal care products that contain fragrance, dyes or preservatives?: shampoo,conditioner,laundry detergent,deodorant Do you regularly consume products with aspartame (Equal or NutraSweet)?: No *Medication allergy Medication Allergy Do you fe el you are allergic to any medications? : No Have you been evaluated by a n embosser operator previously for possible drug allergy?: No *Stinging Insects Insect Reaction(s) Have you ev er experienced a stinging insect reaction? : Yes What type of stinging insect?: honey bee,sweat bee,wasp Was the reaction:: small local - where sting occurred What symptoms were experienced?: pain,local swelling Were you taken to the ER for evaluation?: No Have you been previously prescribed an epinephrine autoinjector?: No Have you previously seen an embosser operator for evaluation of possible stinging insect allergy?: No Have you been treated for your stinging insect reaction with immunotherapy?: No *Prior Evaluations and Treatments Prior evaluations and treatments Have you been evaluated by another physician for allergic rhinitis, cough, wheezing, asthma, urticaria, angioedema, atopic dermatitis or eczema?: Yes What type(s) of of provider(s)?: Primary care physician Have you undergone testing for any afore mentioned conditions or symptoms?: No Have you ever been on allergy immunother apy?: No Have you ever passed out during a blood draw, shot or vaccination?: Yes Last dose of antihistamine: hydroxyzine (Atarax) : 09/02/2023 Has your antihistamine been effective in controlling any of your symptoms?: No Do you take any other psychiatric medica tion?: Yes Name:: aripiprazole (Abilify),trazadone (Desyrel or Deprax - also goes by many other names),Other Last dose?: 09/02/2023 *Food allergy Food Allergy Do you currently have or have you ever had any proven or suspected food allergies?: No *Eosinophilic GI Eosinophilic Gastroi ntestinal Disease Do you have difficulty swallowing foods or have you previously needed to have your esophagus dilated for food impaction or have you been diagnosed with eosinophilic gastrointestinal disease?: No *Angioedema Angioedema (swelling) Do you hav e recurrent swelling (angioedema)?: No Examination Category Sub-Category Detail Notes Category Not [...]
--- OUTSIDE RECORDS SUMMARY | 2024-06-05 19:26 | XMS_ITS ---
Author Organization [facility] Planning Address [address] [place] [id number] Care Team Providers Care Car Stower Name Role Phone Belen Mccann Primary Care Provider [phone] REASON FOR VISIT Medication and/or Refills Medications Medication SIG (Take, Route, Fr equency, Duration) Notes Start Date End Date Status Zepbound 2.5 MG/0.5ML 2.5 mg - dispense 4 pens Subcutaneous once a week for 28 days 05/29/2024 Active Encounters Encounter Location Date Provider Diagnosis [address] [facility] [address] 05/29/2024 Belen Mccann Encounter for weight loss counseling Z71.3 Assessments Encounter Date Diagnosis (ICD Code) Assessment Notes Treatment Notes Treatment Clinical Notes Section Notes 05/29/2024 Encounter for weight loss counseling (ICD-10 - Z71.3) Plan Of Treatment Medication Medication Name Sig Start Date Stop Date Notes Zepbound 2.5 MG/0.5ML 2.5 mg - dispense 4 pens Subcutaneous once a week for 28 days 05/29/2024 Wegovy 0.25 MG/0.5ML 0.25mg - dispense 4 pens Subcutaneous once a week Next Appt Details Provider Name:Belen escalante, 06/21/2024 07:30:00 AM, [facility] , [place], [address], Provider Name:Belen escalante 06/28/2024 08:40:00 AM, [address] [facility], [place], [address], Progress Notes * Megan PALACIO HinaDOB: 3 (19 yo F)Acc No.[id number]:05/29/2024 Patient: Megan VALDIVIA :2005 A ge:19 Y S ex:Female Address:[address] [place] [address] * Refills Stop Wegovy Solution Auto-injector, 0.25 MG/0.5ML, Subcutaneous, 0.25mg - dispense 4 pens, once a week Start Zepbound Solution, 2.5 MG/0.5ML, Subcutaneous, 4, 2.5 mg - dispense 4 pens, once a week, 28 days, Refills=0 Subjective: * Chief Complaints: * M edication and/or Refills * Medical History: * Surgical History: * Hospitalization/Major Diagno stic Procedure: * Medications: Objective: * Vitals: * Physical Examination: Assessment: * Assessment: 1. E ncounter for weight loss counseling - Z71.3 Plan: * Treatment: * Procedure Codes: * true * Date: Generated for Lakshmi cerna/Jamal/Marcia on: 0 06/05/2024 07:26 PM CDT
--- OUTSIDE RECORDS SUMMARY | 2024-06-05 19:27 | XMS_ITS ---
Author Organization [facility] Planning Address [address] [place] [id number] Care Team Providers Care Painter Set Name Role Phone Belen Mccann Primary Care Provider [phone] REASON FOR VISIT Medication and/or Refills Medications Medication SIG (Take, Route, Fr equency, Duration) Notes Start Date End Date Status Zepbound 2.5 MG/0.5ML 2.5 mg - dispense 4 pens Subcutaneous once a week for 28 days 05/29/2024 Active Encounters Encounter Location Date Provider Diagnosis [address] [place] [address] 05/30/2024 Belen Mccann Encounter for weight loss counseling Z71.3 Assessments Encounter Date Diagnosis (ICD Code) Assessment Notes Treatment Notes Treatment Clinical Notes Section Notes 05/30/2024 Encounter for weight loss counseling (ICD-10 - Z71.3) Plan Of Treatment Medication Medication Name Sig Start Date Stop Date Notes Zepbound 2.5 MG/0.5ML 2.5 mg - dispense 4 pens Subcutaneous once a week for 28 days 05/29/2024 Next Appt Details Provider Name:Belen escalante, 06/21/2024 07:30:00 AM, [address] [place] [address] [place], [address], Provider Name:Belen escalante, 06/28/2024 08:40:00 [facility] [place], [address], Progress Notes * Megan PALACIODOB: 3 (19 yo F)Acc No.[id number]:05/30/2024 Patient: Megan VALDIVIA :2005 A ge:19 Y S ex:Female Address:[address] [place] [address] * Refills Refill Zepbound Solution, 2.5 MG/0.5ML, Subcutaneous, 4, 2.5 mg - dispense 4 pens, once a week, 28 days, Refills=0 * true * Date: Generated for Lakshmi cerna/Jamal/Haoitting on: 0 06/05/2024 07:26 PM CDT
--- OUTSIDE RECORDS SUMMARY | 2024-06-05 19:27 | XMS_ITS | Encounter Summary ---
Author Organization [facility] Address [address] [facility] [place] [address] Care Team Providers Care Residential Sales Consultant Name Role Phone Cabrera Em DO Primary Care Provider [phone] Adrienne Webb PA-C Primary Care Provider [phone] Encounter Details Date Type Department Care Team (Late st Contact Info) Description 12/28/2018 Telephone [facility] Pediatrics - Neurology [address] [place] [phone] Cabrera Em DO [address] [facility] [place], [place] [address] Social History Tobacco Use Types Packs/Day Years Used Date Smoking Tobacco: Never Smokeless Tobacco: Never Alcohol Use Standard Drinks/Week Comments No 0 (1 standard drink = 0.6 oz pur e alcohol) Comments No Sex and Gender Information Value Date Recorded Sex Assigned at Not on file Legal Sex Female 4:43 PM PROJECT PRODUCT MANAGER Gender Identity Not on file Sexual Orientation Not on file documented as of this encounter Miscellaneous Notes * Telephone Encounter - Celi Shultz - 12/28/2018 9:10 AM CST Rec's received from [facility] to schedule an appt for (Concussion) with LOS. Called and left message to call back to schedule. 12/28/2018 ECT PRODUCT MANAGER documented in this encounter Plan of Treatment Not on file documented as of this encounter Visit Diagnoses Not on filedocumented in this encounter Care Teams Residential Sales Consultant Relationship Specialty Start Date End Date Cabrera Em DO PCP - General Pediatrics 01/02/16 01/12/23 Adrienne Webb PA-C [address] [facility] [place] [phone] PCP - General Physician Manager Of Operations 01/13/23 documented as of this encounter
--- OUTSIDE RECORDS SUMMARY | 2024-06-05 19:27 | XMS_ITS | Patient Health Record ---
Author Organization [facility] Planning Address [address] [place] [address] Care Team Providers Care Oim Architect Name Role Phone Belen Mccann Primary Care Provider Jamia Diggs [phone] Allergies No Known Allergies Results Component Value Reference Range Notes Test, Urine Reviewed date:11/22/2023 10:43:54 AM Interpretation: Performing Lab: Notes/Report: Test, Urine negative Test, Urine Reviewed date:08/24/2023 09:28:53 AM Interpretation: Performing Lab: Notes/Report: Test, Urine negative Reason For Referral No Information Medications Medication SIG (Take, Route, Frequency, Duration) Notes Start Date End Date Status ARIPiprazole 10 MG 1 tablet Orally Once a day for 30 days 03/25/2023 Not-Taking ProAir HFA 108 (90 Base) MCG/ACT 2 puffs -dispense 1 inhaler Inhalation every 6 hours as needed for 30 days Active hydroxyzine 25 1 tablet at bedtime orally once daily for 30 days Not-Taking Amitriptyline HCl 50 MG 1 tablet at bedt wilmer Orally Once a day for 30 days 12/09/2023 Not-Taking Zepbound 2.5 MG/0.5ML 2.5 mg - dispense 4 pens Subcutaneous once a week for 28 days 05/29/2024 Active Depo-Provera 150 MG/ML 1 mL Intramuscula r once every 3 months for 30 days 02/09/2023 Not-Taking Benadryl Allergy 25 MG 1 tablet at bedti me as needed Orally Once a day for 30 day(s) Not-Taking Maciel Fe 1.5/30 1.5-30 MG-MCG 1 tablet Orally Once a day for 28 day(s) Not-Taking FLUoxetine HCl 20 MG 1 capsule Orally On ce a day for 30 days 03/25/2023 Not-Taking Dicyclomine HCl 20 MG 1 tablet Orally Th ree times a day for 30 days Not-Taki ng Immunizations Vaccine Route Administration Date Status Comme nts X Prevnar 7 Unknown 2003 Administered X Hiberix Unknown 2003 Administered X Hiberix Unknown 2003 Administered X Hiberix Unknown 06/19/2004 Administered VFC Varivax Unknown 06/19/2004 Administered VFC Pediarix Unknown 2003 Administered VFC Pediarix Unknown 2003 Administered VFC Pediarix Unknown 06/19/2004 Administered Pneumococcal conjugate PCV 7 Unknown 2003 Administered Pneumococcal conjugate PCV 7 Unknown 2003 Administered Pneumococcal conjugate PCV 7 Unknown 06/19/2004 Administered Pneumococcal conjugate PCV 7 Unknown 11/18/2004 Administered Non VFC Varivax Unknown 10/04/2008 Administered Non VFC Pedvax Unknown 12/20/2004 Administered Non VFC MMR II Unknown 11/18/2004 Administered Non VFC MMR II Unknown 10/04/2008 Administered Non VFC Menactra Unknown 09/25/2014 Administered Non VFC Menactra IM Intramuscular 02/17/2019 Administered Non VFC IPV Unknown 12/20/2004 Administered Non VFC IPV Unknown 10/04/2008 Administered Non VFC Infanrix Unknown 12/20/2004 Administered Non VFC Infanrix Unknown 10/04/2008 Administered Non VFC Havrix-Peds Unknown 10/20/2013 Administered Non VFC Havrix-Peds Unknown 09/25/2014 Administered Non VFC Gardasil 9 IM Intramuscular 02/18/2018 Administere d Non VFC Gardasil Unknown 09/25/2014 Administered Non VFC Boostrix Unknown 09/25/2014 Administered Non VFC Bexsero IM Intramuscular 02/17/2019 Administered Non VFC Bexsero IM Intramuscular 02/21/2020 Administered Social History Tobacco Use: Social History Observation Description Date Details (start date - stop date) Never Smoker NA - NA Tobacco use other than smoking: Question Answer Notes Are you an other tobacco user? No DAST-10 (2020 Edition) Question Answer Notes 1. Have you used drugs other than those required for medical reasons? No 2. Do you abuse more than one drug at a time? No 3. Are you always able to st op using drugs when you want to? Yes 4. Have you had blackouts or flashbacks as a result of drug use? No 5. Do you ever feel bad or guilty about your eloisa g use? No 6. Does your spouse (or pare nts) ever complain about your involvement with drugs? No 7. Have you neglected your f amily because of your use of drugs? No 8. Have you engaged in illeg al activities in order to obtain drugs? No 9. Have you ever experienced withdrawal symptoms (felt sick) when you stopped taking drugs? No 10. Have you had medical pro blems as a result of your drug use (e.g., memory loss, hepatitis, convulsions, bleeding etc.)? No Results: 0 Interpretation of Score: No problems reported Tobacco Control (Standard) Question Answer Notes Tobacco use: Nonsmoker AUDIT-C (Standard) Question Answer Notes Did you have a drink containing alcohol in the p ast year? No Points 0 Interpretation Negative Section Notes: 1-2 cups soda daily non smoker 1-2 cups soda daily non smoker 1-2 cups soda daily non smoker 1-2 cups soda daily non smoker 1-2 cups soda daily non smoker 1-2 cups soda daily non smoker 1-2 cups soda daily non smoker 1-2 cups soda daily non smoker 1-2 cups soda daily non smoker 1-2 cups soda daily non smoker 1-2 cups soda daily non smoker 1-2 cups soda daily non smoker 1-2 cups soda daily non smoker 1-2 cups soda daily non smoker 1-2 cups soda daily non smoker Problems Problem Type SNOMED Code ICD Code Onset Dates Problem Status W/U Status Risk Notes Problem Irritable bowel syndrome (19536841) IBS (irritable bowel syndrome) (K58.9) Active confirmed Problem 16384356 DENIS (generalized anxiety disorder) (F41.1) Active confirmed Problem 881427454 Mild intermitten t asthma without complication (J45.20) Active confirmed Problem 55252782 Depression, unspecified depression type (F32.A) Active confirmed Vital Signs Heart Rate 67 /min 05/29/2024 Temperature 98.2 degrees Fahrenheit 05/29/2024 Respiratory Rate 18 /min 05/29/2024 Height-cm 167.64 cm 05/29/2024 Oximetry 98 % 05/29/2024 Blood pressure diastolic 83 mm Hg 05/29/2024 Weight-kg 82.55 kg 05/29/2024 Height 66 in 05/29/2024 Blood pressure systolic 142 mm Hg 05/29/2024 Weight 182.0 lbs 05/29/2024 BMI 29.37 kg/m2 05/29/2024 Encounters Encounter Location Date Provider Diagnosis [facility] [address] [place] [address] 08/04/2023 Jamia Diggs Depression, unspecified depression type F32.A ; Mood disorder F39 ; DENIS (generalized anxiety disorder) F41.1 and Sleep disorder G47.[address] [place] [address] 08/24/2023 Belen Mccann Depo contraception Z30.[address] [address] 09/16/2023 Jamia Diggs Mood disorder F39 ; DENIS (generalized anxiety disorder) F41.1 and Sleep disorder G47.[address] [place] [address] 11/22/2023 Belen Mccann Depo contraception Z30.49 and BMI 27.0-27.9,adult Z68.[address] [address] 12/09/2023 Jamia Diggs Depression, unspecified depression type F32.A ; Mood disorder F39 ; DENIS (generalized anxiety disorder) F41.1 and Sleep disorder G47.[address] [place] [address] 05/29/2024 Belen Mccann Encounter for weight loss counseling Z71.3 ; BMI 29.0-29.9,adult Z68.29 and Lipid screening Z13.[address] [address] 09/13/2023 Jamia Diggs [address] [place] [address] 11/19/2023 Belen Mccann control counseling Z30.09 [facility] [address] [facility] [address] [place] [address] 12/24/2023 Jamia Diggs [address] [place] [address] 05/29/2024 Belen Mccann Mild intermittent asthma without complication J45.[address] [place] [address] 05/29/2024 Belen Mccann Encounter for weight loss counseling Z71.[address] [place] [address] 05/29/2024 Belen Mccann Encounter for weight loss counseling Z71.[address] [place] [address] 05/30/2024 Belen Mccann Encounter for weight loss counseling Z71.3 [facility] [address] [place] [address] 06/05/2024 Belen Mccann [facility] [address] [address] 09/05/2023 Jamia Diggs Assessments Encounter Date Diagnosis (ICD Code) Assessment Notes Treatment Notes Treatment Clinical Notes Section Notes 08/04/2023 Depression, unspecified depression type (ICD-10 - F32.A) 08/24/2023 Depo contraception (ICD-10 - Z30.49) 09/16/2023 Mood disorder (ICD-10 - F39) 11/19/2023 control counseling (ICD-10 - Z30.09) 11/22/2023 Depo contraception (ICD-10 - Z30.49) 11/22/2023 BMI 27.0-27.9,adult (ICD-10 - Z68.27) Body Mass Index: Care Instructions material was published 12/09/2023 Depression, unspecified depression type (ICD-10 - F32.A) 05/29/2024 Encounter for weight loss counseling (ICD-10 - Z71.3) Encourage healthy diet and exercise Limit sweet, starch, and alcohol intake Labs ordered. Wegovy prescribed - this is once a week injectable medications. Discussed side effects of GI problems including abdominal pain, nausea, vomiting, and diarrhea If it is approved by insurance, then we will followup in 1 month Discussed plan of care with patient, and she verbalized understanding Followup in 1 month., Learning About Healthy Weight material was published 05/29/2024 BMI 29.0-29.9,adult (ICD-10 - Z68.29) 05/29/2024 Mild intermittent asthma without complication (ICD-10 - J45.20) 05/29/2024 Encounter for weight loss counseling (ICD-10 - Z71.3) 05/29/2024 Encounter for weight loss counseling (ICD-10 - Z71.3) 05/30/2024 Encounter for weight loss counseling (ICD-10 - Z71.3) 05/29/2024 Lipid screening (ICD-10 - Z13.220) 09/16/2023 DENIS (generalized anxiety disorder) (ICD-10 - F41.1) 12/09/2023 Mood disorder (ICD-10 - F39) 08/04/2023 Mood disorder (ICD-10 - F39) 08/04/2023 DENIS (generalized anxiety disorder) (ICD-10 - F41.1) 09/16/2023 Sleep disorder (ICD-10 - G47.9) 12/09/2023 DENIS (generalized anxiety disorder) (ICD-10 - F41.1) 12/09/2023 Sleep disorder (ICD-10 - G47.9) 08/04/2023 Sleep disorder (ICD-10 - G47.9) 08/04/2023 Other 1. Patient/guardian provided counseling and educations regarding s/s, ddx/ dx. 2. Available treatment options discussed. 3. Patient to follow up with medical provider for all other medical problems. 4. Monitor closely for suicidal ideations and self-harming behaviors. Patient advised to call 911 or go to ER as needed for thoughts of self-harm, SI/HI. Patient/guardian voices understanding of treatment plan and emergency procedures. 5. Patient is not in any imminent danger and will be maintained on outpatient basis. 6. Patient/guardian given opportunity to ask questions and express feelings. 7. Patient reminded to call with any problems, concerns, or questions. 8. Discussed healthy diet and exercise. Discussed sleep hygiene. 9. Follow up as directed or sooner if having new or concerns s/s. 10. [place] 08/24/2023 Other Doing well on Depo. test negative. Discussed possible side effects of Depo : mood swings, breast tenderness, nausea, headaches, spotting between periods. control does not protect against STDs. Use condoms for protection with each sexual intercourse. Use back up protection if on antibiotics while on the antibiotics and for 2 weeks after completing antibiotics. It is recommended that patients do not take Depo for more than 2 years as this can cause bone loss with being on medication for a long period of time. Some patients have a lot of spotting when first starting Depo. Others have periods every months while some don't have periods at all. If you would miss a period, having nausea/vomitting, breast tenderness, feeling excessively tired - take a home test. If you suspect you could be , come in the office for evaluation. Discussed plan of care with patient, and she verbalized understanding Follow up in 3 months. 09/16/2023 Other Medication education and side effects discussed. Emergency services were discussed with patient. Instructed patient to go to ER if having suicidal thoughts. 11/22/2023 Other Doing well on Depo. test negative. Discussed possible side effects of Depo : mood swings, breast tenderness, nausea, headaches, spotting between periods. control does not protect against STDs. Use condoms for protection with each sexual intercourse. Use back up protection if on antibiotics while on the antibiotics and for 2 weeks after completing antibiotics. It is recommended that patients do not take Depo for more than 2 years as this can cause bone loss with being on medication for a long period of time. Some patients have a lot of spotting when first starting Depo. Others have periods every months while some don't have periods at all. If you would miss a period, having nausea/vomitting, breast tenderness, feeling excessively tired - take a home test. If you suspect you could be , come in the office for evaluation. Discussed plan of care with patient, and she verbalized understanding Follow up in 3 months. 12/09/2023 Other 1. Patient/guardian provided counseling and educations regarding s/s, ddx/ dx. 2. Available treatment options discussed. 3. Patient to follow up with medical provider for all other medical problems. 4. Monitor closely for suicidal ideations and self-harming behaviors. Patient advised to call 911 or go to ER as needed for thoughts of self-harm, SI/HI. Patient/guardian voices understanding of treatment plan and emergency procedures. 5. Patient is not in any imminent danger and will be maintained on outpatient basis. 6. Patient/guardian given opportunity to ask questions and express feelings. 7. Patient reminded to call with any problems, concerns, or questions. 8. Discussed healthy diet and exercise. Discussed sleep hygiene. 9. Follow up as directed or sooner if having new or concerns s/s. 10. [place] 05/29/2024 Other Semaglutide Auto-Injector (SEMAGLUTIDE (WEIGHT) - INJECTION) [FDB] material was published Plan Of Treatment Future Test Test Name Order Date LIPID PANEL 05/29/2024 COMPREHENSIVE METABOLIC PANEL (CMP) 05/16 CBC W AUTO DIFF 05/29/2024 TSH W/REFLEX TO FT4 05/29/2024 Next Appt Details Provider Name:Belen escalante, 06/21/2024 07:30:00 AM, [address] [place] [address] , [place], [address], Provider Name:Belen escalante, 06/28/2024 08:40:00 AM, [address] [place] [address] , [place], [address], Insurance Providers Payer Name Payer Address Payer Phone Subscriber Number Group Number Insured Name Patient Relationship to Insured Coverage Start Date Coverage End Date [facility] [address] [place] [address] [phone] [id number] Brian Megan Self - patient is the insured 2024 Medications Administered Medication Instructions Date of Administration Dosage Notes Depo Provera Injection 02/12/2023 150 mg Pa tient brought in own med, MFR: [employer], Lot #[id number], [facility] [id number] Depo Provera Injection 05/20/2023 150 mg Patient brought Depo from pharmacy Preg test neg Depo Provera Injection 11/22/2023 LOT: [id number] EXP. : 09/14/2026 Medical (General) History Medical History History ICD Code Concussion Surgical History Surgery Date(Month/Year) index finger on left hand 2014
--- OUTSIDE RECORDS SUMMARY | 2024-06-05 19:27 | XMS_ITS ---
Author Organization [facility] Planning Address [address] [place] [address] Care Team Providers Care [employer] Consultant Name Role Phone Belen Mccann Primary Care Provider [phone] REASON FOR VISIT Clinical Advice Encounters Encounter Location Date Provider Diagnosis [facility] [address] [place] [address] 06/05/2024 Belen Mccann Plan Of Treatment Next Appt Details Provider Name:Belen escalante, 06/21/2024 07:30:00 AM, [address] [place] [address] , [place], [address], Provider Name:Belen escalante, 06/28/2024 08:40:00 AM, [address] [place] [address] , [place], [address], Progress Notes * Megan PALACIODOB: 3 (19 yo F)Acc No.[id number]:06/05/2024 Patient: Savana Megan MEYER :2005 A ge:19 Y S ex:Female Address:[place] [address] * true * Date: Generated for Printi ng/Faxing/eTransmitting on: 0 06/05/2024 07:27 PM CDT
[2024-06-05 19:35] LABS: Monoscreen Negative (Negative); Negative Monotest Control Negative (Negative); Positive Monotest Control Positive (Positive)
[2024-06-05 19:38] LABS: Influenza A QL RT-PCR Negative (Negative); Influenza B QL RT-PCR Negative (Negative); RSV RNA, RT-PCR Negative (Negative); SARS-CoV-2 RNA PCR Negative (Negative)
[2024-06-05 19:51] VITALS: BP 138/86; PULSE 87; RESP 15; O2SAT 98
== END 2024-06-05 20:24 | disposition home or self-care (01) ==
PROVIDERS: Registered Nurse; Emergency Provider Physician Assistant
DX: R09.81 Nasal congestion (principal); J02.9 Acute pharyngitis, unspecified; Z20.822 Contact with and (suspected) exposure to COVID-19
CPT/HCPCS: 36415; 71046; 80053; 85025; 86308; 87637; 87651; 96372; 99283; J1885; J7512